=== PATIENT | female | born 1955 | race Two or more races ===

== ENCOUNTER 2021-03-12 10:52 | Emergency (ER) | payer MEDICARE, MEDICAID ==
[~2021-03-12] VITALS: Ht 170.2 cm; Wt 86.0 kg
[2021-03-12 12:45] VITALS: BP 168/95
[2021-03-12] MEDS ORDERED: ONDA4TAB6 PO (16:59)
[2021-03-12] MEDS ORDERED: ALBU8HFA PO (16:59)
[2021-03-12] MEDS ORDERED: BENZ-16 PO (16:59)
[2021-03-13] MEDS ORDERED: NO HOME MEDS PO (15:00)
== END 2021-03-12 17:39 | disposition home or self-care (01) ==
LOC: ER 10:53
DX: U07.1 COVID-19 (principal); R11.0 Nausea; R06.02 Shortness of breath; R09.89 Other specified symptoms and signs involving the circulatory and respiratory systems
CPT/HCPCS: 71045; 87635; 99285; C9803; 93005

== ENCOUNTER 2021-03-13 12:52 | Inpatient (IN) | payer MEDICARE, MEDICAID ==
[~2021-03-13] VITALS: Ht 165.1 cm; Wt 108.4 kg
[~2021-03-13 12:52] MED LIST: ALBU8HFA PO; BENZ-16 PO; ONDA4TAB6 PO; calcium chloride 100 MG/1 ML inj IV ONE; etomidate 2mg/ml inj. ONE; naloxone 0.4 mg/ml inj ONE; rocuronium 10mg/ml inj IV ONE; sodium bicarbonate (8.4%) 1 mEq/ml syringe ONE
--- NOTE | 2021-03-13 12:54 | NUR ---
ARRIVED IN ER PER EMS WITH NRB MASK AT 15 LPM. PATIENT IS UNRESPONSIVE, LETHARGIC, AND DIAPHORETIC.
[2021-03-13 13:07] LABS: ABG BASE EXCESS -24.3 mmol/L (-2.0-2.0); ABG HCO3 10.6 mmol/L (22.0-26.0); ABG OXYGEN SATURATION 97.5 % (94-97); ABG PCO2 (T) 63.7 mmHg (32.0-45.0); ABG PO2 (T) 146.8 mmHg (75.0-100.0); ALLEN'S TEST Modified; FCOHb 0.9 % (0.0-3.9); FLOW 15 L/min; FMetHb 0.3 % (0.0-1.5); FO2Hb 96.3 % (94-97); TOTAL HEMOGLOBIN 15.6 G/dl (12.0-16.0)
[2021-03-13 13:16] LABS: BASOPHILS % (AUTO) 0.2 % (0-1); EOSINOPHILS % (AUTO) 0 % (0-6); HEMATOCRIT 49.2 % (35.0-45.0); HEMOGLOBIN 15.4 g/dl (12.0-16.0); LYMPHOCYTES # (AUTO) 1.5 X10'3 (1.1-4.8); LYMPHOCYTES % (AUTO) 5.1 % (21-51); MEAN CORPUSCULAR HEMOGLOBIN 28.8 PG (27.0-31.0); MEAN CORPUSCULAR HGB CONC 31.3 g/dL (33.0-36.5); MEAN CORPUSCULAR VOLUME 92.1 FL (78-98); MEAN PLATELET VOLUME 8.8 FL (7.4-10.4); MONOCYTES # (AUTO) 5.4 X10'3 (0-0.9); MONOCYTES % (AUTO) 18.8 % (2-12); NEUTROPHILS # (AUTO) 21.9 X10'3 (1.8-7.7); NEUTROPHILS % (AUTO) 75.9 % (42-75); PLATELET COUNT 396 X10'3 (140-440); RED BLOOD COUNT 5.34 X10'6 (4.20-5.60); RED CELL DISTRIBUTION WIDTH 14.7 % (11.5-14.5)
--- NOTE | 2021-03-13 13:17 | NUR ---
INTUBATION COMPLETED. SUCTIONED OF LARGE AMOUNT CREAMY SECRETIONS PER RT. OG SALEM SUMP #18 FR INSERTED AND SECURED TO LIS WITH DARK OUTPUT. TEMP NELSON CATH INSERTED AND UA OBTAINED.
[2021-03-13 13:18] LABS: WHITE BLOOD COUNT 28.8 X10'3 (4.5-11.0)
[2021-03-13 13:24] LABS: CLARITY,URINE CLOUDY (Clear); COLOR,URINE YELLOW (Yellow); GLUCOSE, URINE >=1000 mg/dl (Neg); KETONES,URINE 40 mg/dl (Neg); LEUKOCYTE ESTERASE ,URINE NEGATIVE (Neg); NITRITES, URINE NEGATIVE (Neg); OCCULT BLOOD,URINE LARGE (Neg); PH,URINE 5.5 (4.8-8.0); PROTEIN,URINE 100 mg/dl (Neg)
[2021-03-13 13:28] LABS: UA COLLECTION TYPE FOLEY CATH
[2021-03-13 13:33] LABS: COARSE GRANULAR CAST >30 /LPF (NEGATIVE); SQUAMOUS EPITHELIAL CELL,UR FEW /LPF (FEW)
[2021-03-13 13:34] LABS: BACTERIA,URINE 2+ /HPF (Neg); RBC,URINE 0-2 /HPF (0-2); TRANSITIONAL EPI CELLS,URINE MODERATE /HPF; WBC,URINE 0-4 /HPF (0-4)
[2021-03-13 13:35] LABS: MUCUS STRANDS FEW /LPF (Neg)
[2021-03-13 13:41] LABS: ALANINE AMINOTRANSFERASE 24 U/L (12-78); ALBUMIN 3.1 G/DL (3.4-5.0); ALBUMIN/GLOBULIN RATIO 0.6 (1.1-1.5); ALKALINE PHOSPHATASE 154 IU/L (46-116); ANION GAP 29 (8-16); ASPARTATE AMINO TRANSFERASE 20 U/L (10-37); BILIRUBIN,TOTAL 0.7 MG/DL (0.1-1.0); BLOOD UREA NITROGEN 49 MG/DL (7-18); BUN/CREATININE RATIO 26.5 (6.6-38.0); CALCIUM 9.5 MG/DL (8.5-10.1); CHLORIDE 93 MMOL/L (99-107); CREATININE 1.85 MG/DL (0.40-0.90); PLATELET ESTIMATE NORMAL; POTASSIUM 3.5 MMOL/L (3.5-5.1); SODIUM 132 MMOL/L (135-145); TOTAL CELLS COUNTED 100; TOTAL PROTEIN 8.1 G/DL (6.4-8.2); eGFR 27 ML/MIN
[2021-03-13] MEDS ORDERED: iohexol 350MG/ML 100ml bottle IV ONE (13:56)
--- NOTE | 2021-03-13 14:00 | NUR ---
PTS DAUGHTER [phone]
[2021-03-13 14:04] LABS: TOTAL CARBON DIOXIDE 10.3 MMOL/L (24-32)
[2021-03-13 14:05] LABS: GLUCOSE 629 MG/DL (70-104)
[2021-03-13] MEDS ORDERED: sodium bicarbonate (8.4%) inj. 50 MEQ in dextrose 5% water 500ml 250 ML IV PRN (14:15)
[2021-03-13] MEDS ORDERED: sodium bicarbonate (8.4%) inj. 100 MEQ in dextrose 5% water 500ml 500 ML IV PRN (14:15)
[2021-03-13] MEDS ORDERED: potassium Cl 40MEQ/1/2NS 520ml 520 ML IV PRN ×2 (14:15)
[2021-03-13] MEDS ORDERED: insulin regular, human U-100 3ml vial - multi-dose IV PRN (14:15)
[2021-03-13] MEDS ORDERED: potassium Cl 20 mEq SR tablet PO PRN ×4 (14:15→15:05)
[2021-03-13] MEDS ORDERED: Neutra Phos packet PO PRN (14:15)
[2021-03-13] MEDS ORDERED: sodium phosphate inj. 15 MMOL in dextrose 5%-water 250 ML IV PRN (14:15)
[2021-03-13 14:40] LABS: ABG BASE EXCESS -18.1 mmol/L (-2.0-2.0); ABG HCO3 12.3 mmol/L (22.0-26.0); ABG OXYGEN SATURATION 97.2 % (94-97); ABG PCO2 (T) 42.2 mmHg (32.0-45.0); ABG PO2 (T) 100.3 mmHg (75.0-100.0); ALLEN'S TEST POSITIVE; FCOHb 0.9 % (0.0-3.9); FMetHb 0.2 % (0.0-1.5); FO2Hb 96.1 % (94-97); PEEP 5 cm H2O; RESPIRATORY RATE 20 b/min; TIDAL VOLUME 400 mL; TOTAL HEMOGLOBIN 14.8 G/dl (12.0-16.0)
[2021-03-13 15:00] LABS: ALBUMIN 2.7 G/DL (3.4-5.0); ANION GAP 24 (8-16); BLOOD UREA NITROGEN 47 MG/DL (7-18); BUN/CREATININE RATIO 27.5 (6.6-38.0); CALCIUM 9.9 MG/DL (8.5-10.1); CHLORIDE 98 MMOL/L (99-107); CREATININE 1.71 MG/DL (0.40-0.90); SODIUM 136 MMOL/L (135-145); eGFR 30 ML/MIN
[2021-03-13] MEDS ORDERED: NO HOME MEDS PO (15:00)
[2021-03-13 15:05] LABS: TOTAL CARBON DIOXIDE 13.6 MMOL/L (24-32)
[2021-03-13] MEDS ORDERED: magnesium hydroxide 30ml (MOM) UD suspension PO PRN (15:05)
[2021-03-13] MEDS ORDERED: magnesium 4gm in 100ml NS 100 ML IV PRN (15:05)
[2021-03-13] MEDS ORDERED: ondansetron/PF 4mg/2ml inj IV PRN (15:05)
[2021-03-13] MEDS ORDERED: acetaminophen 325mg tablet PO PRN (15:05)
[2021-03-13] MEDS ORDERED: LIDOcaine 2% 10ml TOPICAL JELLY (Urojet) TP ONE (15:05)
[2021-03-13] MEDS ORDERED: ipratropium/albuterol 3ml nebule NEB PRN (15:05)
[2021-03-13] MEDS ORDERED: magnesium 2GM in 50ml NS 50 ML IV PRN (15:05)
[2021-03-13] MEDS ORDERED: magnesium Cl slow-release 64mg tablet PO PRN (15:05)
[2021-03-13 15:07] LABS: PHOSPHORUS 4.5 MG/DL (2.3-4.5); POTASSIUM 3.3 MMOL/L (3.5-5.1)
[2021-03-13 15:08] LABS: GLUCOSE 571 MG/DL (70-104)
--- NOTE | 2021-03-13 15:40 | NUR ---
TC FROM [facility]. CONDITION REPORT GIVEN AND ALL QUESTIONS ANSWERED.
[2021-03-13 15:53] LABS: PLATELET COUNT 396 X10'3 (140-440)
[2021-03-13] MEDS ORDERED: midazolam 100mg in NS 100ml 100 ML IV ONE (16:00)
[2021-03-13] MEDS ORDERED: VANCOMYCIN 750MG IV in NS 250 ML IV SCH (16:00)
[2021-03-13 16:07] LABS: D-DIMER 4.84 MG/L FEU (0-0.50); PARTIAL THROMBOPLASTIN TIME 35 SECONDS (22-32)
[2021-03-13] MEDS: Insulin Reg/NS 100units/100mL 100 ML IV SCH (16:34)
[2021-03-13] MEDS: normal saline 1000ml 1,000 ML IV SCH ×7 (16:35→23:52)
[2021-03-13] MEDS: cefTAZidime inj 2 GM in normal saline 100ml IV soln 100 ML IV SCH (17:11)
[2021-03-13] MEDS ORDERED: REMDESIVIR INJ 200 MG in normal saline 100ml IV soln 60 ML IV ONE (17:45)
[2021-03-13] MEDS: fentaNYL/PF 50MCG/1 ML 2ML syringe IV PRN (18:05)
--- NOTE | 2021-03-13 18:13 | NUR ---
PHONE NUMBER IS: [phone]
[2021-03-13] MEDS: K, MAG and/or Phos replacement - Verify level? MC SCH (19:07)
[2021-03-13] MEDS: docusate sod 100mg capsule PO SCH (19:10)
[2021-03-13] MEDS: K and/or MAG REPLACEMENT MC SCH (19:10)
--- NOTE | 2021-03-13 19:37 | NUR ---
RT AT BEDSIDE DRAWING ABG. PTS DAUGHTER AT BEDSIDE PARAMJIT (LOCAL) CELL # [phone]. VSS. REMAINS ON VENT AT 50% FIO2. rATE OF 20 WITH PEEP 5.
[2021-03-13] MEDS: enoxaparin 60mg/0.6ml syringe SUBCUT SCH (19:42)
--- NOTE | 2021-03-13 19:42 | NUR ---
PTS , [facility], . THEY ARE STAYING IN [place] RIGHT NOW BUT THEY LIVE IN [place] AND AR CURRENTLY EVACUATED D/T FIRES.
[2021-03-13 19:49] LABS: ABG BASE EXCESS -15.9 mmol/L (-2.0-2.0); ABG HCO3 11.5 mmol/L (22.0-26.0); ABG OXYGEN SATURATION 90.1 % (94-97); ABG PCO2 (T) 32.4 mmHg (32.0-45.0); ABG PO2 (T) 58.1 mmHg (75.0-100.0); ALLEN'S TEST Modified; FCOHb 0.8 % (0.0-3.9); FMetHb 0.1 % (0.0-1.5); FO2Hb 89.3 % (94-97); PATIENT TEMPERATURE 36.8; PEEP 5 cm H2O; RESPIRATORY RATE 20 b/min; TIDAL VOLUME 450 mL; TOTAL HEMOGLOBIN 14.4 G/dl (12.0-16.0)
[2021-03-13] MEDS ORDERED: piperacillin/tazo 4.5gm/100ml 100 ML IV ONE (20:00)
[2021-03-13] MEDS ORDERED: dexamethasone 4mg/ml inj IM SCH (20:00)
[2021-03-13 20:14] LABS: BASOPHILS % (AUTO) 0.3 % (0-1); EOSINOPHILS % (AUTO) 0.1 % (0-6); HEMATOCRIT 47.1 % (35.0-45.0); HEMOGLOBIN 14.8 g/dl (12.0-16.0); LYMPHOCYTES # (AUTO) 0.8 X10'3 (1.1-4.8); LYMPHOCYTES % (AUTO) 5.6 % (21-51); MEAN CORPUSCULAR HEMOGLOBIN 27.8 PG (27.0-31.0); MEAN CORPUSCULAR HGB CONC 31.5 g/dL (33.0-36.5); MEAN CORPUSCULAR VOLUME 88.4 FL (78-98); MEAN PLATELET VOLUME 8.3 FL (7.4-10.4); MONOCYTES # (AUTO) 1.6 X10'3 (0-0.9); MONOCYTES % (AUTO) 11.2 % (2-12); NEUTROPHILS # (AUTO) 11.5 X10'3 (1.8-7.7); NEUTROPHILS % (AUTO) 82.8 % (42-75); PLATELET COUNT 235 X10'3 (140-440); RED BLOOD COUNT 5.33 X10'6 (4.20-5.60); RED CELL DISTRIBUTION WIDTH 14.4 % (11.5-14.5); WHITE BLOOD COUNT 13.9 X10'3 (4.5-11.0)
[2021-03-13 20:30] LABS: ALANINE AMINOTRANSFERASE 23 U/L (12-78); ALBUMIN/GLOBULIN RATIO 0.6 (1.1-1.5); ALKALINE PHOSPHATASE 136 IU/L (46-116); ANION GAP 25 (8-16); ASPARTATE AMINO TRANSFERASE 24 U/L (10-37); BILIRUBIN,TOTAL 1.1 MG/DL (0.1-1.0); BLOOD UREA NITROGEN 37 MG/DL (7-18); CALCIUM 9.8 MG/DL (8.5-10.1); CHLORIDE 104 MMOL/L (99-107); CREATININE 1.54 MG/DL (0.40-0.90); GLUCOSE 347 MG/DL (70-104); MAGNESIUM 2.3 MG/DL (1.5-2.4); SODIUM 144 MMOL/L (135-145); TOTAL CARBON DIOXIDE 15.3 MMOL/L (24-32); TOTAL PROTEIN 7.9 G/DL (6.4-8.2); eGFR 34 ML/MIN
[2021-03-13 20:36] LABS: POTASSIUM 2.4 MMOL/L (3.5-5.1)
--- NOTE | 2021-03-13 20:37 | NUR ---
K 2.4, INSULIN GTT STOPPED PER PROTOCOL AND PAGE OUT TO NOC SEMAPHORE OPERATOR. PTS DAUGHTER REMAINIS AT BEDSIDE. PT HAS ROOM ASSIGNMENT, 2008.
--- NOTE | 2021-03-13 20:45 | NUR ---
DR. JENNINGS CALLED TO UPDATE K 2.4. VERBAL RECEIVED TO CONTINUE OUR DKA PROTOCOL AND STOP INSULIN GTT UNTIL K OVER 3.5. CONTINUE IV FLUIDS. ORDER K REPLACEMENT. ALSO ASKED ABOUT NEED FOR FENTANYL GTT AND HE REPORTS OK TO KEEP IT PRN PUSH CURRENTLY ORDERED. REPORTS JUST GIVEN TO RN OTOLARYNGOLOGY BY LILLY CLOUD.
[2021-03-13 21:19] LABS: BANDS% (MANUAL) 16 % (0-10); LYMPHOCYTES % (MANUAL) 5 % (21-51); METAMYLEOCYTES% (MANUAL) 5 % (0-0); MONOCYTES % (MANUAL) 13 % (2-12); NEUTROPHILS % (MANUAL) 61 % (42-75); TOTAL CELLS COUNTED 100
[2021-03-13 21:20] LABS: PLATELET ESTIMATE NORMAL
[2021-03-13 21:30] VITALS: BP 136/57
[2021-03-13] MEDS: potassium Cl 20mEq/100mL bag 100 ML IV PRN ×2 (21:44→23:23)
[2021-03-13] MEDS: sodium phosphate inj. 30 MMOL in dextrose 5%-water 250 ML IV PRN (21:50)
[2021-03-13 22:00] VITALS: BP 117/45
[2021-03-13 23:00] VITALS: BP 121/52
[2021-03-14] VITALS (24 sets, daily range): BP systolic 68–130; BP diastolic 36–62
[2021-03-14] MEDS ORDERED: magnesium 4gm in 100ml NS 100 ML IV ONE (00:40)
[2021-03-14] MEDS: dexmedetomidin/NS 400mcg/100ml 100 ML IV PRN ×4 (00:46→23:37)
[2021-03-14] MEDS: potassium Cl 20mEq/100mL bag 100 ML IV PRN ×5 (01:36→15:00)
[2021-03-14] MEDS: normal saline 1000ml 1,000 ML IV SCH ×8 (02:15→22:15)
[2021-03-14 04:37] LABS: BASOPHILS % (AUTO) 0 % (0-1); EOSINOPHILS % (AUTO) 0 % (0-6); HEMATOCRIT 40.7 % (35.0-45.0); HEMOGLOBIN 13.2 g/dl (12.0-16.0); LYMPHOCYTES # (AUTO) 0.4 X10'3 (1.1-4.8); LYMPHOCYTES % (AUTO) 2.7 % (21-51); MEAN CORPUSCULAR HEMOGLOBIN 28.6 PG (27.0-31.0); MEAN CORPUSCULAR HGB CONC 32.5 g/dL (33.0-36.5); MEAN PLATELET VOLUME 8.3 FL (7.4-10.4); MONOCYTES % (AUTO) 14.6 % (2-12); NEUTROPHILS # (AUTO) 11.1 X10'3 (1.8-7.7); NEUTROPHILS % (AUTO) 82.7 % (42-75); PLATELET COUNT 222 X10'3 (140-440); RED BLOOD COUNT 4.62 X10'6 (4.20-5.60); RED CELL DISTRIBUTION WIDTH 14.1 % (11.5-14.5); WHITE BLOOD COUNT 13.4 X10'3 (4.5-11.0)
[2021-03-14 04:40] LABS: ABG BASE EXCESS -14.4 mmol/L (-2.0-2.0); ABG HCO3 11.9 mmol/L (22.0-26.0); ABG OXYGEN SATURATION 97.4 % (94-97); ALLEN'S TEST Modified; FCOHb 0.3 % (0.0-3.9); FMetHb 0.3 % (0.0-1.5); FO2Hb 96.8 % (94-97); PEEP 5 cm H2O; RESPIRATORY RATE 20 b/min; TIDAL VOLUME 450 mL; TOTAL HEMOGLOBIN 14.1 G/dl (12.0-16.0)
[2021-03-14 04:46] LABS: ALBUMIN 2.2 G/DL (3.4-5.0); ANION GAP 19 (8-16); BLOOD UREA NITROGEN 31 MG/DL (7-18); CALCIUM 8.9 MG/DL (8.5-10.1); CHLORIDE 112 MMOL/L (99-107); CREATININE 1.35 MG/DL (0.40-0.90); GLUCOSE 297 MG/DL (70-104); MAGNESIUM 2.8 MG/DL (1.5-2.4); POTASSIUM 3.7 MMOL/L (3.5-5.1); SODIUM 146 MMOL/L (135-145); eGFR 39 ML/MIN
[2021-03-14 04:47] LABS: PARTIAL THROMBOPLASTIN TIME 30 SECONDS (22-32)
[2021-03-14 05:23] LABS: BANDS% (MANUAL) 24 % (0-10); LYMPHOCYTES % (MANUAL) 4 % (21-51); MONOCYTES % (MANUAL) 7 % (2-12); NEUTROPHILS % (MANUAL) 62 % (42-75); TOTAL CELLS COUNTED 100
[2021-03-14 05:24] LABS: METAMYLEOCYTES% (MANUAL) 3 % (0-0); PLATELET ESTIMATE NORMAL
[2021-03-14] MEDS: potassium CL 20mEq in D5-1/2NS 1,000 ML IV PRN ×3 (05:36→22:24)
--- NOTE | 2021-03-14 06:49 | NUR ---
Problems reprioritized. Patient report given, questions answered & plan of care reviewed with Emerald CARR.
[2021-03-14] MEDS: pantoprazole 40 MG vial IV SCH (07:54)
[2021-03-14] MEDS: enoxaparin 60mg/0.6ml syringe SUBCUT SCH ×2 (07:55→21:12)
[2021-03-14] MEDS: docusate sod 100mg capsule PO SCH (08:00)
[2021-03-14] MEDS: K, MAG and/or Phos replacement - Verify level? MC SCH (08:00)
[2021-03-14] MEDS ORDERED: dexamethasone 4mg/ml inj IM SCH (08:00)
[2021-03-14] MEDS: K and/or MAG REPLACEMENT MC SCH ×2 (08:00→20:00)
[2021-03-14] MEDS: REMDESIVIR INJ 100 MG in normal saline 100ml IV soln 80 ML IV SCH (08:34)
[2021-03-14 09:32] LABS: C-REACTIVE PROTEIN 27.96 MG/DL (0.0-0.5)
[2021-03-14] MEDS: cefTAZidime inj 2 GM in normal saline 100ml IV soln 100 ML IV SCH ×2 (10:08→21:05)
[2021-03-14] MEDS: Insulin Reg/NS 100units/100mL 100 ML IV SCH (10:15)
[2021-03-14] MEDS: dexamethasone 4mg/ml inj IV SCH ×2 (10:53→21:11)
--- NOTE | 2021-03-14 11:20 | NUR ---
Initial: Pt admit for acute respiratory failure, COVID PNA, DKA, and mild acute renal failure. Pt intubated at this time, documented with an OG tube in place though no TF consult at this time. TF recommendations below for if expected prolonged intubation and to receive nutrition support. Per EMR pt with T2DM however per H&P and ED report pt with prediabetes, noted pt with no home meds per ED report, current A1c is 9.8%. Pt will need official DM diagnosis by physician prior to RD providing education if this is a new diagnosis. No documented LBM, pt with routine Colace available however documented to be held d/t not needed. Will continue to follow closely. Recommendations: 1) IF TF, continuous Vital High Protein with goal rate of 60 mL/hr. Begin at 20 mL/hr and advance by 20 mL Q8H as tolerated to goal rate. To provide 1440 mL total volume/day, 1440 kcal, 126 g protein, and 1204 mL water 2) IF TF, monitor serum Na and make water flush recommendations as appropriate. Low serum Na on admit, now elevated 3) IF TF, prealbumin q Saturday/, daily scaled weights 4) Routine bowel care 5) DM education once stable following extubation, A1c 9.8%. Possibly new diagnosis Addendum: 03/14/21 at [address] Amended: Links added.
[2021-03-14] MEDS: fentaNYL/PF 50MCG/1 ML 2ML syringe IV PRN (13:29)
--- NOTE | 2021-03-14 13:37 | NUR ---
Dr Howell notified of +BC no new orders
[2021-03-14 13:39] LABS: ALBUMIN 1.7 G/DL (3.4-5.0); ANION GAP 12 (8-16); BLOOD UREA NITROGEN 28 MG/DL (7-18); BUN/CREATININE RATIO 21.7 (6.6-38.0); CALCIUM 7.8 MG/DL (8.5-10.1); CHLORIDE 117 MMOL/L (99-107); CREATININE 1.29 MG/DL (0.40-0.90); GLUCOSE 164 MG/DL (70-104); POTASSIUM 3.4 MMOL/L (3.5-5.1); SODIUM 148 MMOL/L (135-145); TOTAL CARBON DIOXIDE 19.4 MMOL/L (24-32); eGFR 41 ML/MIN
[2021-03-14] MEDS ORDERED: NORepinephrine 8mg/ 250ml NS 250 ML IV ONE (13:48)
[2021-03-14] MEDS: vancomycin/NS 1 GM ADD-VANTAGE 250 ML IV SCH (15:47)
[2021-03-14] MEDS: acetaminophen 325mg tablet PO PRN ×2 (15:57→21:48)
[2021-03-14] MEDS ORDERED: docusate sodium 100mg/10ml UD cup OGT ONE (20:51)
[2021-03-14] MEDS: enoxaparin 30mg/0.3ml syringe SUBCUT SCH (21:13)
[2021-03-14 22:39] LABS: ALBUMIN 1.9 G/DL (3.4-5.0); ANION GAP 8 (8-16); BLOOD UREA NITROGEN 30 MG/DL (7-18); BUN/CREATININE RATIO 22.1 (6.6-38.0); CALCIUM 8.8 MG/DL (8.5-10.1); CHLORIDE 116 MMOL/L (99-107); CREATININE 1.36 MG/DL (0.40-0.90); GLUCOSE 139 MG/DL (70-104); MAGNESIUM 2.4 MG/DL (1.5-2.4); POTASSIUM 4.4 MMOL/L (3.5-5.1); SODIUM 144 MMOL/L (135-145); TOTAL CARBON DIOXIDE 19.7 MMOL/L (24-32); eGFR 39 ML/MIN
[2021-03-14] MEDS ORDERED: dextrose 50%-water 50ml dispensing syringe IV PRN ×2 (23:50)
[2021-03-14] MEDS ORDERED: dextrose ORAL solution 15 GM/59 ML bottle PO PRN ×2 (23:50)
[2021-03-14] MEDS ORDERED: glucagon, human recombinant 1mg kit SUBCUT PRN (23:50)
[2021-03-15] VITALS (24 sets, daily range): BP systolic 95–152; BP diastolic 53–90
[2021-03-15] MEDS: sodium phosphate inj. 30 MMOL in dextrose 5%-water 250 ML IV PRN (00:04)
[2021-03-15] MEDS: normal saline 1000ml 1,000 ML IV SCH ×4 (00:25→15:50)
[2021-03-15] MEDS: insulin glargine (Lantus) pen - multi-dose SQ SCH ×2 (03:41→21:17)
[2021-03-15] MEDS: insulin regular, human U-100 3ml vial - multi-dose SQ SCH ×4 (03:44→21:15)
[2021-03-15 04:42] LABS: BASOPHILS % (AUTO) 0.2 % (0-1); EOSINOPHILS % (AUTO) 0 % (0-6); HEMATOCRIT 38.1 % (35.0-45.0); HEMOGLOBIN 12.3 g/dl (12.0-16.0); LYMPHOCYTES # (AUTO) 0.6 X10'3 (1.1-4.8); LYMPHOCYTES % (AUTO) 4.3 % (21-51); MEAN CORPUSCULAR HEMOGLOBIN 28.7 PG (27.0-31.0); MEAN CORPUSCULAR HGB CONC 32.2 g/dL (33.0-36.5); MEAN CORPUSCULAR VOLUME 89.2 FL (78-98); MEAN PLATELET VOLUME 8.6 FL (7.4-10.4); MONOCYTES # (AUTO) 0.9 X10'3 (0-0.9); MONOCYTES % (AUTO) 5.7 % (2-12); NEUTROPHILS # (AUTO) 13.6 X10'3 (1.8-7.7); NEUTROPHILS % (AUTO) 89.8 % (42-75); PLATELET COUNT 226 X10'3 (140-440); RED BLOOD COUNT 4.27 X10'6 (4.20-5.60); RED CELL DISTRIBUTION WIDTH 14.6 % (11.5-14.5); WHITE BLOOD COUNT 15.2 X10'3 (4.5-11.0)
[2021-03-15 04:53] LABS: D-DIMER 2.47 MG/L FEU (0-0.50); PARTIAL THROMBOPLASTIN TIME 37 SECONDS (22-32)
[2021-03-15 04:54] LABS: ABG BASE EXCESS -12.4 mmol/L (-2.0-2.0); ABG HCO3 12.6 mmol/L (22.0-26.0); ABG OXYGEN SATURATION 89.5 % (94-97); ABG PCO2 (T) 28.8 mmHg (32.0-45.0); ABG PO2 (T) 65.2 mmHg (75.0-100.0); ALLEN'S TEST Modified; FCOHb 0.4 % (0.0-3.9); FMetHb 0.2 % (0.0-1.5); PATIENT TEMPERATURE 38.2; PEEP 5 cm H2O; RESPIRATORY RATE 20 b/min; TIDAL VOLUME 450 mL; TOTAL HEMOGLOBIN 13.4 G/dl (12.0-16.0)
[2021-03-15] MEDS: potassium CL 20mEq in D5-1/2NS 1,000 ML IV PRN (04:54)
[2021-03-15] MEDS: dexmedetomidin/NS 400mcg/100ml 100 ML IV PRN ×2 (05:42→20:29)
[2021-03-15 05:50] LABS: ALANINE AMINOTRANSFERASE 27 U/L (12-78); ALBUMIN/GLOBULIN RATIO 0.5 (1.1-1.5); ALKALINE PHOSPHATASE 160 IU/L (46-116); ANION GAP 13 (8-16); ASPARTATE AMINO TRANSFERASE 39 U/L (10-37); BILIRUBIN,TOTAL 0.6 MG/DL (0.1-1.0); BLOOD UREA NITROGEN 38 MG/DL (7-18); BUN/CREATININE RATIO 27.3 (6.6-38.0); CHLORIDE 111 MMOL/L (99-107); CREATININE 1.39 MG/DL (0.40-0.90); GLUCOSE 421 MG/DL (70-104); MAGNESIUM 2.5 MG/DL (1.5-2.4); PHOSPHORUS 3.3 MG/DL (2.3-4.5); POTASSIUM 5.1 MMOL/L (3.5-5.1); SODIUM 143 MMOL/L (135-145); TOTAL CARBON DIOXIDE 19.2 MMOL/L (24-32); eGFR 38 ML/MIN
--- NOTE | 2021-03-15 06:30 | NUR ---
RECEIVED REPORT FROM LILLY COPELAND
--- NOTE | 2021-03-15 06:56 | NUR ---
Problems reprioritized. Patient report given, questions answered & plan of care reviewed with STEPHANIE CARR.
[2021-03-15] MEDS: dexamethasone 4mg/ml inj IV SCH ×2 (08:00→20:32)
[2021-03-15] MEDS: K and/or MAG REPLACEMENT MC SCH ×2 (08:00→20:00)
[2021-03-15] MEDS: K, MAG and/or Phos replacement - Verify level? MC SCH (08:00)
[2021-03-15] MEDS: FENTANYL-0.9 % NACL/PF 100 ML IV PRN (08:44)
[2021-03-15] MEDS: REMDESIVIR INJ 100 MG in normal saline 100ml IV soln 80 ML IV SCH (08:45)
[2021-03-15] MEDS: midazolam 100mg in NS 100ml 100 ML IV PRN (08:45)
[2021-03-15] MEDS: docusate sodium 100mg/10ml UD cup OGT SCH ×2 (08:45→20:31)
[2021-03-15] MEDS: cefTAZidime inj 2 GM in normal saline 100ml IV soln 100 ML IV SCH ×2 (08:45→20:28)
[2021-03-15] MEDS: enoxaparin 30mg/0.3ml syringe SUBCUT SCH ×2 (08:46→20:31)
[2021-03-15] MEDS: enoxaparin 60mg/0.6ml syringe SUBCUT SCH ×2 (08:46→20:31)
[2021-03-15] MEDS: pantoprazole 40 MG vial IV SCH (08:47)
--- NOTE | 2021-03-15 12:15 | NUR ---
DR. JEFF INSERTED CHEST TUBE ON RIGHT SIDE.
--- NOTE | 2021-03-15 13:24 | NUR ---
TF consult: Pt remains intubated, see TF recommendations below. Per CM notes patient's SO reports pt was told that she has pre-diabetes a couple of years ago and that pt has been watching what she eats and trying to stay active. Current A1c is 9.8%, pt will need DM dx by physician prior to RD being able to provide DM education. Will continue to follow. Recommendations: 1) Continuous Vital High Protein with goal rate of 60 mL/hr. To provide 1440 mL total volume/day, 1440 kcal, 126 g protein, and 1204 mL water 2) Additional 200 mL water flush Q4H; monitor serum Na 3) Prealbumin q Saturday/, daily scaled weights 4) Routine bowel care 5) DM education once stable following extubation, A1c 9.8%. Will need diagnosis by physician prior to RD education Addendum: 03/15/21 at [address] Amended: Links added.
[2021-03-15] MEDS ORDERED: magnesium hydroxide 30ml (MOM) UD suspension OGT PRN (15:36)
[2021-03-15] MEDS ORDERED: POTASSIUM BICARB 20meq eff tab 20 MEQ TABLET.EFF PO PRN ×3 (15:40)
[2021-03-15] MEDS ORDERED: POTASSIUM BICARB 20meq eff tab 20 MEQ TABLET.EFF OGT PRN ×2 (15:40)
[2021-03-15] MEDS ORDERED: dextrose ORAL solution 15 GM/59 ML bottle OGT PRN ×2 (15:50)
[2021-03-15] MEDS: vancomycin/NS 1 GM ADD-VANTAGE 250 ML IV SCH (15:50)
[2021-03-15 16:38] LABS: ALANINE AMINOTRANSFERASE 25 U/L (12-78); ALBUMIN 1.8 G/DL (3.4-5.0); ALBUMIN/GLOBULIN RATIO 0.5 (1.1-1.5); ALKALINE PHOSPHATASE 174 IU/L (46-116); ANION GAP 12 (8-16); ASPARTATE AMINO TRANSFERASE 24 U/L (10-37); BILIRUBIN,TOTAL 0.4 MG/DL (0.1-1.0); BLOOD UREA NITROGEN 35 MG/DL (7-18); BUN/CREATININE RATIO 29.9 (6.6-38.0); CALCIUM 8.7 MG/DL (8.5-10.1); CHLORIDE 117 MMOL/L (99-107); CREATININE 1.17 MG/DL (0.40-0.90); GLUCOSE 342 MG/DL (70-104); POTASSIUM 4.5 MMOL/L (3.5-5.1); SODIUM 148 MMOL/L (135-145); TOTAL CARBON DIOXIDE 18.8 MMOL/L (24-32); TOTAL PROTEIN 5.4 G/DL (6.4-8.2); eGFR 46 ML/MIN
--- NOTE | 2021-03-15 18:22 | NUR ---
REPORT GIVEN TO LLILY COPELAND
--- NOTE | 2021-03-15 18:30 | NUR ---
Patient in room CICU 2008. I have received report from STEPHANIE CARR and had the opportunity to ask questions and assume patient care.
--- NOTE | 2021-03-15 19:40 | NUR ---
INITIAL ASSESSMENT DONE. CHEST TUBE TO SUCTION. SERO-SANGUINEOUS OUTPUT. ALL MEDS INFUSING THROUGH CVL. PT INTUBATED AND TOLERATING WELL. FENTANYL BOLOS GIVEN FOR PAIN MANAGEMENT.
[2021-03-15] MEDS: lactobacillus rhamnosus 10,000 MMU CELLS/CAPSULE PO SCH (21:13)
[2021-03-16] VITALS (24 sets, daily range): BP systolic 97–153; BP diastolic 51–92
[2021-03-16] MEDS: dexmedetomidin/NS 400mcg/100ml 100 ML IV PRN ×2 (02:16→17:21)
[2021-03-16] MEDS: FENTANYL-0.9 % NACL/PF 100 ML IV PRN ×2 (02:17→20:24)
[2021-03-16 02:52] LABS: BASOPHILS # (AUTO) 0.3 X10'3 (0-0.2); BASOPHILS % (AUTO) 1.5 % (0-1); EOSINOPHILS % (AUTO) 0 % (0-6); HEMATOCRIT 38.1 % (35.0-45.0); HEMOGLOBIN 12.5 g/dl (12.0-16.0); LYMPHOCYTES # (AUTO) 0.7 X10'3 (1.1-4.8); MEAN CORPUSCULAR HEMOGLOBIN 28.8 PG (27.0-31.0); MEAN CORPUSCULAR HGB CONC 32.9 g/dL (33.0-36.5); MEAN CORPUSCULAR VOLUME 87.6 FL (78-98); MEAN PLATELET VOLUME 9.2 FL (7.4-10.4); MONOCYTES # (AUTO) 0.7 X10'3 (0-0.9); NEUTROPHILS # (AUTO) 16.4 X10'3 (1.8-7.7); NEUTROPHILS % (AUTO) 90.5 % (42-75); PLATELET COUNT 233 X10'3 (140-440); RED BLOOD COUNT 4.36 X10'6 (4.20-5.60); RED CELL DISTRIBUTION WIDTH 15.2 % (11.5-14.5); WHITE BLOOD COUNT 18.1 X10'3 (4.5-11.0)
[2021-03-16 03:08] LABS: D-DIMER 2.15 MG/L FEU (0-0.50); PARTIAL THROMBOPLASTIN TIME 35 SECONDS (22-32)
[2021-03-16] MEDS: insulin regular, human U-100 3ml vial - multi-dose SQ SCH ×3 (03:21→20:30)
[2021-03-16 03:54] LABS: ALBUMIN 1.8 G/DL (3.4-5.0); ANION GAP 11 (8-16); BLOOD UREA NITROGEN 35 MG/DL (7-18); BUN/CREATININE RATIO 37.6 (6.6-38.0); CALCIUM 9.1 MG/DL (8.5-10.1); CHLORIDE 119 MMOL/L (99-107); CREATININE 0.93 MG/DL (0.40-0.90); GLUCOSE 234 MG/DL (70-104); MAGNESIUM 2.7 MG/DL (1.5-2.4); POTASSIUM 4.2 MMOL/L (3.5-5.1); PREALBUMIN 6.2 MG/DL (19-36); SODIUM 150 MMOL/L (135-145); TOTAL CARBON DIOXIDE 19.9 MMOL/L (24-32); eGFR 61 ML/MIN
[2021-03-16 04:14] LABS: BANDS% (MANUAL) 6 % (0-10); LYMPHOCYTES % (MANUAL) 4 % (21-51); MONOCYTES % (MANUAL) 2 % (2-12); NEUTROPHILS % (MANUAL) 88 % (42-75); TOTAL CELLS COUNTED 100
[2021-03-16 04:15] LABS: PLATELET ESTIMATE NORMAL
[2021-03-16 04:32] LABS: ABG BASE EXCESS -5.5 mmol/L (-2.0-2.0); ABG HCO3 17.4 mmol/L (22.0-26.0); ABG OXYGEN SATURATION 96.8 % (94-97); ABG PO2 (T) 93.8 mmHg (75.0-100.0); ALLEN'S TEST Modified; FCOHb 0.5 % (0.0-3.9); FMetHb 0.3 % (0.0-1.5); PATIENT TEMPERATURE 37.9; PEEP 5 cm H2O; RESPIRATORY RATE 20 b/min; TIDAL VOLUME 450 mL
[2021-03-16 04:37] LABS: C-REACTIVE PROTEIN 34.48 MG/DL (0.0-0.5)
--- NOTE | 2021-03-16 06:18 | NUR ---
Problems reprioritized. Patient report given, questions answered & plan of care reviewed with CHLOE CARR.
[2021-03-16] MEDS: normal saline 1000ml 1,000 ML IV SCH ×2 (06:44→15:45)
[2021-03-16] MEDS: K, MAG and/or Phos replacement - Verify level? MC SCH (08:00)
[2021-03-16] MEDS: K and/or MAG REPLACEMENT MC SCH ×2 (08:00→20:00)
[2021-03-16] MEDS: cefTAZidime inj 2 GM in normal saline 100ml IV soln 100 ML IV SCH ×3 (08:29→23:49)
[2021-03-16] MEDS: dexamethasone 4mg/ml inj IV SCH ×2 (08:42→20:15)
[2021-03-16] MEDS: enoxaparin 60mg/0.6ml syringe SUBCUT SCH ×2 (08:47→20:12)
[2021-03-16] MEDS: enoxaparin 30mg/0.3ml syringe SUBCUT SCH ×2 (08:47→20:12)
[2021-03-16] MEDS: lactobacillus rhamnosus 10,000 MMU CELLS/CAPSULE PO SCH ×2 (08:48→20:25)
[2021-03-16] MEDS: docusate sodium 100mg/10ml UD cup OGT SCH ×2 (08:48→20:24)
[2021-03-16] MEDS: REMDESIVIR INJ 100 MG in normal saline 100ml IV soln 80 ML IV SCH (08:48)
[2021-03-16] MEDS: pantoprazole 40 MG vial IV SCH (08:48)
[2021-03-16] MEDS ORDERED: VANCOMYCIN LEVEL IV ONE (15:30)
[2021-03-16] MEDS: acetaminophen 325mg tablet OGT PRN (20:20)
[2021-03-16] MEDS: insulin glargine (Lantus) pen - multi-dose SQ SCH (20:50)
[2021-03-17] VITALS (24 sets, daily range): BP systolic 109–201; BP diastolic 57–78
[2021-03-17] MEDS: insulin regular, human U-100 3ml vial - multi-dose SQ SCH ×4 (01:55→20:24)
[2021-03-17 02:48] LABS: BASOPHILS # (AUTO) 0.1 X10'3 (0-0.2); BASOPHILS % (AUTO) 0.5 % (0-1); EOSINOPHILS % (AUTO) 0 % (0-6); HEMATOCRIT 37.1 % (35.0-45.0); HEMOGLOBIN 12.4 g/dl (12.0-16.0); LYMPHOCYTES # (AUTO) 0.6 X10'3 (1.1-4.8); MEAN CORPUSCULAR HEMOGLOBIN 28.8 PG (27.0-31.0); MEAN CORPUSCULAR HGB CONC 33.4 g/dL (33.0-36.5); MEAN CORPUSCULAR VOLUME 86.5 FL (78-98); MEAN PLATELET VOLUME 9.3 FL (7.4-10.4); MONOCYTES # (AUTO) 0.8 X10'3 (0-0.9); MONOCYTES % (AUTO) 5.3 % (2-12); NEUTROPHILS # (AUTO) 13.8 X10'3 (1.8-7.7); NEUTROPHILS % (AUTO) 90.2 % (42-75); PLATELET COUNT 221 X10'3 (140-440); RED BLOOD COUNT 4.29 X10'6 (4.20-5.60); RED CELL DISTRIBUTION WIDTH 15.4 % (11.5-14.5); WHITE BLOOD COUNT 15.3 X10'3 (4.5-11.0)
[2021-03-17 03:11] LABS: D-DIMER 1.32 MG/L FEU (0-0.50); PARTIAL THROMBOPLASTIN TIME 34 SECONDS (22-32)
[2021-03-17 03:21] LABS: ALBUMIN 1.6 G/DL (3.4-5.0); ANION GAP 7 (8-16); BLOOD UREA NITROGEN 36 MG/DL (7-18); BUN/CREATININE RATIO 40.4 (6.6-38.0); C-REACTIVE PROTEIN 20.82 MG/DL (0.0-0.5); CALCIUM 8.8 MG/DL (8.5-10.1); CHLORIDE 118 MMOL/L (99-107); CREATININE 0.89 MG/DL (0.40-0.90); GLUCOSE 264 MG/DL (70-104); MAGNESIUM 2.6 MG/DL (1.5-2.4); POTASSIUM 4.2 MMOL/L (3.5-5.1); SODIUM 149 MMOL/L (135-145); TOTAL CARBON DIOXIDE 23.8 MMOL/L (24-32); eGFR 64 ML/MIN
[2021-03-17 04:55] LABS: ABG BASE EXCESS -5.1 mmol/L (-2.0-2.0); ABG HCO3 19.3 mmol/L (22.0-26.0); ABG OXYGEN SATURATION 93.5 % (94-97); ABG PCO2 (T) 35.4 mmHg (32.0-45.0); ABG PO2 (T) 73.9 mmHg (75.0-100.0); ALLEN'S TEST POSITIVE; FCOHb 0.2 % (0.0-3.9); FMetHb 0.1 % (0.0-1.5); FO2Hb 93.2 % (94-97); PATIENT TEMPERATURE 37.9; TOTAL HEMOGLOBIN 12.6 G/dl (12.0-16.0)
[2021-03-17] MEDS: normal saline 1000ml 1,000 ML IV SCH ×2 (05:19→14:53)
[2021-03-17] MEDS: cefTAZidime inj 2 GM in normal saline 100ml IV soln 100 ML IV SCH (07:24)
[2021-03-17] MEDS: dexamethasone 4mg/ml inj IV SCH ×2 (07:25→20:43)
[2021-03-17] MEDS: pantoprazole 40 MG vial IV SCH (07:25)
[2021-03-17] MEDS: lactobacillus rhamnosus 10,000 MMU CELLS/CAPSULE PO SCH ×2 (07:28→20:43)
[2021-03-17] MEDS: docusate sodium 100mg/10ml UD cup OGT SCH ×2 (07:28→20:43)
[2021-03-17] MEDS: enoxaparin 30mg/0.3ml syringe SUBCUT SCH ×2 (07:29→20:44)
[2021-03-17] MEDS: enoxaparin 60mg/0.6ml syringe SUBCUT SCH ×2 (07:29→20:45)
[2021-03-17] MEDS: K and/or MAG REPLACEMENT MC SCH ×2 (07:30→20:00)
[2021-03-17] MEDS: K, MAG and/or Phos replacement - Verify level? MC SCH (07:30)
[2021-03-17] MEDS: REMDESIVIR INJ 100 MG in normal saline 100ml IV soln 80 ML IV SCH (10:25)
[2021-03-17] MEDS: FENTANYL-0.9 % NACL/PF 100 ML IV PRN (11:11)
--- NOTE | 2021-03-17 12:27 | NUR ---
Reassessment: DKA resolved per MD note. Pt remains intubated and tolerating TF at goal rate with GRV WNL. Noted serum Na elevated at 149 MMOL/L today however is down from 03/16. Pt currently receiving 200 mL water flush Q4H. No changes to nutrition intervention recommendations at this time. Noted pt still with no documented BM since admit. Pt started on routine bowel care 03/15 and with additional PRN bowel care available. Will continue to follow closely. Recommendations: 1) Continuous Vital High Protein with goal rate of 60 mL/hr. To provide 1440 mL total volume/day, 1440 kcal, 126 g protein, and 1204 mL water 2) Additional 200 mL water flush Q4H; monitor serum Na 3) Prealbumin q Saturday/, daily scaled weights 4) Routine bowel care 5) DM education once stable following extubation, A1c 9.8%. Will need diagnosis by physician prior to RD education Addendum: 03/17/21 at [address] Amended: Links added.
[2021-03-17] MEDS: dexmedetomidin/NS 400mcg/100ml 100 ML IV PRN ×2 (14:12→23:55)
[2021-03-17] MEDS: acetaminophen 325mg tablet OGT PRN ×2 (15:39→23:59)
[2021-03-17] MEDS: insulin glargine (Lantus) pen - multi-dose SQ SCH (20:26)
[2021-03-17] MEDS: cefepime 2g/NS 100ml ADVANTAGE 100 ML IV SCH (20:43)
[2021-03-18] VITALS (24 sets, daily range): BP systolic 127–191; BP diastolic 65–92
[2021-03-18] MEDS: insulin regular, human U-100 3ml vial - multi-dose SQ SCH ×4 (02:13→20:39)
[2021-03-18 03:54] LABS: BASOPHILS % (AUTO) 0.3 % (0-1); EOSINOPHILS % (AUTO) 0 % (0-6); HEMATOCRIT 37.7 % (35.0-45.0); HEMOGLOBIN 12.2 g/dl (12.0-16.0); LYMPHOCYTES # (AUTO) 0.7 X10'3 (1.1-4.8); LYMPHOCYTES % (AUTO) 4.4 % (21-51); MEAN CORPUSCULAR HEMOGLOBIN 28.6 PG (27.0-31.0); MEAN CORPUSCULAR HGB CONC 32.3 g/dL (33.0-36.5); MEAN CORPUSCULAR VOLUME 88.4 FL (78-98); MEAN PLATELET VOLUME 9.9 FL (7.4-10.4); MONOCYTES # (AUTO) 1.4 X10'3 (0-0.9); MONOCYTES % (AUTO) 8.2 % (2-12); NEUTROPHILS # (AUTO) 14.5 X10'3 (1.8-7.7); NEUTROPHILS % (AUTO) 87.1 % (42-75); PLATELET COUNT 200 X10'3 (140-440); RED BLOOD COUNT 4.26 X10'6 (4.20-5.60); RED CELL DISTRIBUTION WIDTH 15.3 % (11.5-14.5); WHITE BLOOD COUNT 16.6 X10'3 (4.5-11.0)
[2021-03-18 03:55] LABS: D-DIMER 1.18 MG/L FEU (0-0.50); PARTIAL THROMBOPLASTIN TIME 32 SECONDS (22-32)
[2021-03-18 03:59] LABS: ALBUMIN 1.5 G/DL (3.4-5.0); ANION GAP 6 (8-16); BLOOD UREA NITROGEN 33 MG/DL (7-18); BUN/CREATININE RATIO 40.7 (6.6-38.0); C-REACTIVE PROTEIN 10.16 MG/DL (0.0-0.5); CALCIUM 8.5 MG/DL (8.5-10.1); CHLORIDE 117 MMOL/L (99-107); CREATININE 0.81 MG/DL (0.40-0.90); GLUCOSE 233 MG/DL (70-104); MAGNESIUM 2.4 MG/DL (1.5-2.4); POTASSIUM 3.9 MMOL/L (3.5-5.1); SODIUM 149 MMOL/L (135-145); TOTAL CARBON DIOXIDE 26.2 MMOL/L (24-32); eGFR 71 ML/MIN
[2021-03-18] MEDS: FENTANYL-0.9 % NACL/PF 100 ML IV PRN (04:31)
[2021-03-18 04:40] LABS: ABG OXYGEN SATURATION 91.8 % (94-97); ABG PCO2 (T) 27.3 mmHg (32.0-45.0); ABG PO2 (T) 64.4 mmHg (75.0-100.0); ALLEN'S TEST POSITIVE; FCOHb 0.9 % (0.0-3.9); PATIENT TEMPERATURE 38.5; PEEP 5 cm H2O; RESPIRATORY RATE 20 b/min; TIDAL VOLUME 450 mL; TOTAL HEMOGLOBIN 13.5 G/dl (12.0-16.0)
[2021-03-18] MEDS ORDERED: furosemide 40mg/4ml inj IV ONE (04:50)
[2021-03-18] MEDS ORDERED: labetalol 20mg/4ml (5mg/ml) syringe IV PRN (04:55)
--- NOTE | 2021-03-18 06:31 | NUR ---
Patient in room CICU 2008. I have received report from Bryan CARR and had the opportunity to ask questions and assume patient care.
[2021-03-18] MEDS: pantoprazole 40 MG vial IV SCH (07:39)
[2021-03-18] MEDS: cefepime 2g/NS 100ml ADVANTAGE 100 ML IV SCH ×2 (07:39→23:36)
[2021-03-18] MEDS: docusate sodium 100mg/10ml UD cup OGT SCH ×2 (07:39→20:25)
[2021-03-18] MEDS: acetaminophen 325mg tablet OGT PRN ×3 (07:40→23:33)
[2021-03-18] MEDS: lactobacillus rhamnosus 10,000 MMU CELLS/CAPSULE PO SCH ×2 (07:40→20:27)
[2021-03-18] MEDS: enoxaparin 30mg/0.3ml syringe SUBCUT SCH ×2 (07:41→20:26)
[2021-03-18] MEDS: dexamethasone 4mg/ml inj IV SCH ×2 (07:41→20:27)
[2021-03-18] MEDS: enoxaparin 60mg/0.6ml syringe SUBCUT SCH ×2 (07:41→20:26)
[2021-03-18] MEDS: K, MAG and/or Phos replacement - Verify level? MC SCH (08:00)
[2021-03-18] MEDS: dexmedetomidin/NS 400mcg/100ml 100 ML IV PRN ×5 (08:58→23:54)
[2021-03-18] MEDS: normal saline 1000ml 1,000 ML IV SCH ×2 (16:06→19:24)
--- NOTE | 2021-03-18 16:08 | NUR ---
Patient in room CICU 2008. I have received report from Jenny CARR and had the opportunity to ask questions and assume patient care.
--- NOTE | 2021-03-18 18:20 | NUR ---
Problems reprioritized. Patient report given, questions answered & plan of care reviewed with Nohemi CARR.
--- NOTE | 2021-03-18 18:32 | NUR ---
Patient in room CICU 2008. I have received report from Shanique CARR and had the opportunity to ask questions and assume patient care.
[2021-03-18] MEDS: polyethylene glycol 3350 17gm powd pack PO SCH (20:26)
[2021-03-18] MEDS: insulin glargine (Lantus) pen - multi-dose SQ SCH (20:40)
[2021-03-19] VITALS (24 sets, daily range): BP systolic 58–197; BP diastolic 31–105
[2021-03-19] MEDS: FENTANYL-0.9 % NACL/PF 100 ML IV PRN ×3 (01:29→20:58)
[2021-03-19] MEDS: insulin regular, human U-100 3ml vial - multi-dose SQ SCH ×4 (02:36→20:35)
[2021-03-19] MEDS: dexmedetomidin/NS 400mcg/100ml 100 ML IV PRN ×4 (03:07→18:21)
[2021-03-19 03:28] LABS: ABG BASE EXCESS 7.8 mmol/L (-2.0-2.0); ABG HCO3 30.7 mmol/L (22.0-26.0); ABG OXYGEN SATURATION 93.5 % (94-97); ABG PCO2 (T) 38.7 mmHg (32.0-45.0); ABG PO2 (T) 68.1 mmHg (75.0-100.0); ALLEN'S TEST POSITIVE; FCOHb 0.7 % (0.0-3.9); FMetHb 0.1 % (0.0-1.5); FO2Hb 92.8 % (94-97); PATIENT TEMPERATURE 37.9; PEEP 5 cm H2O; TOTAL HEMOGLOBIN 14.2 G/dl (12.0-16.0)
[2021-03-19 03:46] LABS: BASOPHILS % (AUTO) 0.1 % (0-1); EOSINOPHILS % (AUTO) 0 % (0-6); HEMATOCRIT 40.9 % (35.0-45.0); HEMOGLOBIN 13.2 g/dl (12.0-16.0); LYMPHOCYTES # (AUTO) 0.8 X10'3 (1.1-4.8); LYMPHOCYTES % (AUTO) 4.3 % (21-51); MEAN CORPUSCULAR HEMOGLOBIN 28.7 PG (27.0-31.0); MEAN CORPUSCULAR HGB CONC 32.3 g/dL (33.0-36.5); MEAN CORPUSCULAR VOLUME 88.8 FL (78-98); MEAN PLATELET VOLUME 9.8 FL (7.4-10.4); MONOCYTES % (AUTO) 10.7 % (2-12); NEUTROPHILS # (AUTO) 15.7 X10'3 (1.8-7.7); NEUTROPHILS % (AUTO) 84.9 % (42-75); PLATELET COUNT 188 X10'3 (140-440); RED BLOOD COUNT 4.61 X10'6 (4.20-5.60); RED CELL DISTRIBUTION WIDTH 15.1 % (11.5-14.5); WHITE BLOOD COUNT 18.5 X10'3 (4.5-11.0)
[2021-03-19 04:04] LABS: ALBUMIN 1.6 G/DL (3.4-5.0); ANION GAP 4 (8-16); BLOOD UREA NITROGEN 24 MG/DL (7-18); BUN/CREATININE RATIO 31.2 (6.6-38.0); C-REACTIVE PROTEIN 6.51 MG/DL (0.0-0.5); CALCIUM 8.1 MG/DL (8.5-10.1); CHLORIDE 110 MMOL/L (99-107); CREATININE 0.77 MG/DL (0.40-0.90); GLUCOSE 229 MG/DL (70-104); MAGNESIUM 2.3 MG/DL (1.5-2.4); POTASSIUM 3.4 MMOL/L (3.5-5.1); SODIUM 147 MMOL/L (135-145); eGFR 75 ML/MIN
[2021-03-19 04:25] LABS: D-DIMER 1.64 MG/L FEU (0-0.50)
[2021-03-19 04:31] LABS: PARTIAL THROMBOPLASTIN TIME 34 SECONDS (22-32)
--- NOTE | 2021-03-19 06:19 | NUR ---
Problems reprioritized. Patient report given, questions answered & plan of care reviewed with Emmett/Izabel CARR.
[2021-03-19] MEDS: dexamethasone 4mg/ml inj IV SCH ×2 (07:26→20:19)
[2021-03-19] MEDS: docusate sodium 100mg/10ml UD cup OGT SCH ×2 (07:27→20:18)
[2021-03-19] MEDS: cefepime 2g/NS 100ml ADVANTAGE 100 ML IV SCH ×2 (07:28→16:27)
[2021-03-19] MEDS: pantoprazole 40 MG vial IV SCH (07:28)
[2021-03-19 07:29] LABS: TOTAL CELLS COUNTED 100
[2021-03-19] MEDS: enoxaparin 30mg/0.3ml syringe SUBCUT SCH ×2 (07:29→20:18)
[2021-03-19] MEDS: lactobacillus rhamnosus 10,000 MMU CELLS/CAPSULE PO SCH ×2 (07:29→20:19)
[2021-03-19] MEDS: enoxaparin 60mg/0.6ml syringe SUBCUT SCH ×2 (07:30→20:18)
[2021-03-19 07:31] LABS: ELLIPTOCYTES FEW; PLATELET ESTIMATE NORMAL; POLYCHROMASIA FEW; TEAR DROP CELLS 1+
[2021-03-19] MEDS: K, MAG and/or Phos replacement - Verify level? MC SCH (08:00)
--- NOTE | 2021-03-19 18:15 | NUR ---
Patient in room CICU 2008. I have received report from Emmett and Izabel RNs and had the opportunity to ask questions and assume patient care.
[2021-03-19] MEDS: polyethylene glycol 3350 17gm powd pack PO SCH (20:17)
[2021-03-19] MEDS: insulin glargine (Lantus) pen - multi-dose SQ SCH (20:37)
[2021-03-19] MEDS: acetaminophen 325mg tablet OGT PRN (20:57)
[2021-03-20] VITALS (26 sets, daily range): BP systolic 68–195; BP diastolic 28–87
[2021-03-20] MEDS: cefepime 2g/NS 100ml ADVANTAGE 100 ML IV SCH ×3 (00:06→15:57)
[2021-03-20] MEDS: dexmedetomidin/NS 400mcg/100ml 100 ML IV PRN ×3 (00:06→06:45)
[2021-03-20] MEDS: insulin regular, human U-100 3ml vial - multi-dose SQ SCH ×4 (02:16→19:56)
[2021-03-20 02:58] LABS: BASOPHILS % (AUTO) 0 % (0-1); EOSINOPHILS % (AUTO) 0 % (0-6); HEMATOCRIT 38.4 % (35.0-45.0); HEMOGLOBIN 12.3 g/dl (12.0-16.0); LYMPHOCYTES # (AUTO) 0.7 X10'3 (1.1-4.8); LYMPHOCYTES % (AUTO) 3.4 % (21-51); MEAN CORPUSCULAR HEMOGLOBIN 28.5 PG (27.0-31.0); MEAN CORPUSCULAR HGB CONC 32.1 g/dL (33.0-36.5); MEAN CORPUSCULAR VOLUME 88.8 FL (78-98); MEAN PLATELET VOLUME 9.2 FL (7.4-10.4); MONOCYTES # (AUTO) 1.6 X10'3 (0-0.9); MONOCYTES % (AUTO) 8.1 % (2-12); NEUTROPHILS # (AUTO) 17.9 X10'3 (1.8-7.7); NEUTROPHILS % (AUTO) 88.5 % (42-75); PLATELET COUNT 178 X10'3 (140-440); RED BLOOD COUNT 4.33 X10'6 (4.20-5.60); RED CELL DISTRIBUTION WIDTH 15.1 % (11.5-14.5); WHITE BLOOD COUNT 20.3 X10'3 (4.5-11.0)
[2021-03-20 03:20] LABS: ALBUMIN 1.4 G/DL (3.4-5.0); ANION GAP 4 (8-16); BLOOD UREA NITROGEN 27 MG/DL (7-18); BUN/CREATININE RATIO 33.3 (6.6-38.0); CALCIUM 7.7 MG/DL (8.5-10.1); CHLORIDE 105 MMOL/L (99-107); CREATININE 0.81 MG/DL (0.40-0.90); GLUCOSE 211 MG/DL (70-104); POTASSIUM 3.5 MMOL/L (3.5-5.1); SODIUM 141 MMOL/L (135-145); TOTAL CARBON DIOXIDE 32.5 MMOL/L (24-32); TRIGLYCERIDES 96 MG/DL (20-135); eGFR 71 ML/MIN
[2021-03-20 03:28] LABS: D-DIMER 1.16 MG/L FEU (0-0.50)
[2021-03-20 03:29] LABS: PARTIAL THROMBOPLASTIN TIME 38 SECONDS (22-32)
[2021-03-20 03:33] LABS: ABG BASE EXCESS 6.8 mmol/L (-2.0-2.0); ABG HCO3 31.4 mmol/L (22.0-26.0); ABG OXYGEN SATURATION 94.7 % (94-97); ABG PCO2 (T) 47.5 mmHg (32.0-45.0); ABG PO2 (T) 79.6 mmHg (75.0-100.0); ALLEN'S TEST POSITIVE; FCOHb 0.4 % (0.0-3.9); FMetHb 0.3 % (0.0-1.5); PATIENT TEMPERATURE 38.2; PEEP 5 cm H2O; RESPIRATORY RATE 20 b/min; TIDAL VOLUME 450 mL; TOTAL HEMOGLOBIN 12.3 G/dl (12.0-16.0)
[2021-03-20] MEDS: FENTANYL-0.9 % NACL/PF 100 ML IV PRN ×2 (06:06→21:52)
--- NOTE | 2021-03-20 06:18 | NUR ---
Problems reprioritized. Patient report given, questions answered & plan of care reviewed with Emmett and Izabel RNs.
[2021-03-20] MEDS: lactobacillus rhamnosus 10,000 MMU CELLS/CAPSULE PO SCH ×2 (07:43→19:50)
[2021-03-20] MEDS: dexamethasone 4mg/ml inj IV SCH ×2 (07:43→19:49)
[2021-03-20] MEDS: pantoprazole 40 MG vial IV SCH (07:43)
[2021-03-20] MEDS: docusate sodium 100mg/10ml UD cup OGT SCH ×2 (07:43→19:47)
[2021-03-20] MEDS: enoxaparin 60mg/0.6ml syringe SUBCUT SCH ×2 (07:44→19:51)
[2021-03-20] MEDS: enoxaparin 30mg/0.3ml syringe SUBCUT SCH ×2 (07:45→19:51)
[2021-03-20] MEDS: K, MAG and/or Phos replacement - Verify level? MC SCH (07:46)
[2021-03-20] MEDS: acetaminophen 325mg tablet OGT PRN (09:20)
[2021-03-20] MEDS: midazolam 100mg in NS 100ml 100 ML IV PRN (10:14)
--- NOTE | 2021-03-20 11:27 | NUR ---
F/u 03/20: Pt tolerating TF at goal GRV WNL. Noted -4.1kg wt change w/ -2.6L fluid balance since yesterday per EMR. Still no BM since admit at least 7 days receiving routine colace and miralax. FREDERICK d/w RN regarding additional bowel care if MD agreeable. Will continue to monitor. Recommendations: 1) Continuous Vital High Protein with goal rate of 60 mL/hr. To provide 1440 mL total volume/day, 1440 kcal, 126 g protein, and 1204 mL water 2) Additional 200 mL water flush Q4H; monitor serum Na 3) Prealbumin q Saturday/, daily scaled weights 4) Routine bowel care; 7 days constipation 5) DM education once stable following extubation, A1c 9.8%. Will need new DM diagnosis by physician prior to RD education Addendum: 03/20/21 at [address] Amended: Links added.
--- NOTE | 2021-03-20 18:30 | NUR ---
Patient in room CICU 2008. I have received report from Emmett/Izabel CARR and had the opportunity to ask questions and assume patient care.
[2021-03-20] MEDS: polyethylene glycol 3350 17gm powd pack PO SCH (19:50)
[2021-03-20] MEDS: insulin glargine (Lantus) pen - multi-dose SQ SCH (19:58)
[2021-03-20] MEDS: QUEtiapine 25mg tablet NG SCH ×2 (21:00→21:15)
[2021-03-20] MEDS: ciprofloxacin 250mg tablet PO SCH (21:49)
[2021-03-21] VITALS (24 sets, daily range): BP systolic 102–184; BP diastolic 42–104
[2021-03-21] MEDS: cefepime 2g/NS 100ml ADVANTAGE 100 ML IV SCH ×3 (00:05→17:03)
[2021-03-21] MEDS: insulin regular, human U-100 3ml vial - multi-dose SQ SCH ×4 (02:03→20:13)
[2021-03-21 03:24] LABS: BASOPHILS % (AUTO) 0.1 % (0-1); EOSINOPHILS % (AUTO) 0 % (0-6); HEMOGLOBIN 11.9 g/dl (12.0-16.0); LYMPHOCYTES # (AUTO) 0.6 X10'3 (1.1-4.8); LYMPHOCYTES % (AUTO) 2.9 % (21-51); MEAN CORPUSCULAR HEMOGLOBIN 28.8 PG (27.0-31.0); MEAN CORPUSCULAR HGB CONC 32.2 g/dL (33.0-36.5); MEAN CORPUSCULAR VOLUME 89.3 FL (78-98); MEAN PLATELET VOLUME 9.6 FL (7.4-10.4); MONOCYTES # (AUTO) 0.9 X10'3 (0-0.9); MONOCYTES % (AUTO) 4.4 % (2-12); NEUTROPHILS # (AUTO) 19.1 X10'3 (1.8-7.7); NEUTROPHILS % (AUTO) 92.6 % (42-75); PLATELET COUNT 171 X10'3 (140-440); RED BLOOD COUNT 4.15 X10'6 (4.20-5.60); RED CELL DISTRIBUTION WIDTH 15.3 % (11.5-14.5); WHITE BLOOD COUNT 20.6 X10'3 (4.5-11.0)
[2021-03-21 03:34] LABS: D-DIMER 0.74 MG/L FEU (0-0.50); PARTIAL THROMBOPLASTIN TIME 37 SECONDS (22-32)
[2021-03-21 03:53] LABS: ALBUMIN 1.4 G/DL (3.4-5.0); ANION GAP 2 (8-16); BLOOD UREA NITROGEN 28 MG/DL (7-18); BUN/CREATININE RATIO 35.4 (6.6-38.0); C-REACTIVE PROTEIN 20.64 MG/DL (0.0-0.5); CALCIUM 8.1 MG/DL (8.5-10.1); CHLORIDE 105 MMOL/L (99-107); CREATININE 0.79 MG/DL (0.40-0.90); GLUCOSE 195 MG/DL (70-104); MAGNESIUM 1.9 MG/DL (1.5-2.4); SODIUM 140 MMOL/L (135-145); TOTAL CARBON DIOXIDE 32.6 MMOL/L (24-32); eGFR 73 ML/MIN
[2021-03-21 04:14] LABS: ABG HCO3 28.3 mmol/L (22.0-26.0); ABG PCO2 (T) 39.1 mmHg (32.0-45.0); ABG PO2 (T) 75.9 mmHg (75.0-100.0); ALLEN'S TEST Yes; FCOHb 0.4 % (0.0-3.9); FMetHb 0.1 % (0.0-1.5); FO2Hb 94.5 % (94-97); PEEP 5 cm H2O; RESPIRATORY RATE 20 b/min; TIDAL VOLUME 450 mL; TOTAL HEMOGLOBIN 12.8 G/dl (12.0-16.0)
--- NOTE | 2021-03-21 06:20 | NUR ---
Problems reprioritized. Patient report given, questions answered & plan of care reviewed with Emmett CARR.
[2021-03-21] MEDS: lactobacillus rhamnosus 10,000 MMU CELLS/CAPSULE PO SCH ×2 (07:56→20:10)
[2021-03-21] MEDS: dexamethasone 4mg/ml inj IV SCH (07:56)
[2021-03-21] MEDS: pantoprazole 40 MG vial IV SCH (07:57)
[2021-03-21] MEDS: enoxaparin 60mg/0.6ml syringe SUBCUT SCH ×2 (07:57→20:10)
[2021-03-21] MEDS: docusate sodium 100mg/10ml UD cup OGT SCH ×2 (07:57→20:10)
[2021-03-21] MEDS: enoxaparin 30mg/0.3ml syringe SUBCUT SCH ×2 (07:59→20:11)
[2021-03-21] MEDS: K, MAG and/or Phos replacement - Verify level? MC SCH (08:00)
[2021-03-21] MEDS: OLANZAPINE 5 MG TABLET PO SCH (11:47)
[2021-03-21] MEDS: ciprofloxacin 250mg tablet PO SCH ×2 (11:48→21:48)
[2021-03-21] MEDS: FENTANYL-0.9 % NACL/PF 100 ML IV PRN (14:30)
[2021-03-21] MEDS: methylPREDNISolone sod succ 125mg/2ml vial IV SCH (17:03)
--- NOTE | 2021-03-21 18:09 | NUR ---
Problems reprioritized. Patient report given, questions answered & plan of care reviewed with LILLY Muller.
--- NOTE | 2021-03-21 18:12 | NUR ---
Patient in room CICU 2008. I have received report from Emmett CARR and had the opportunity to ask questions and assume patient care.
[2021-03-21] MEDS: insulin glargine (Lantus) pen - multi-dose SQ SCH (20:14)
[2021-03-21] MEDS: QUEtiapine 25mg tablet NG SCH (20:24)
[2021-03-21] MEDS: polyethylene glycol 3350 17gm powd pack OGT SCH (20:25)
[2021-03-21] MEDS: midazolam 100mg in NS 100ml 100 ML IV PRN (23:15)
[2021-03-22] VITALS (23 sets, daily range): BP systolic 94–183; BP diastolic 47–80
[2021-03-22] MEDS: methylPREDNISolone sod succ 125mg/2ml vial IV SCH ×4 (00:05→23:21)
[2021-03-22] MEDS: cefepime 2g/NS 100ml ADVANTAGE 100 ML IV SCH ×4 (00:05→23:21)
[2021-03-22] MEDS: insulin regular, human U-100 3ml vial - multi-dose SQ SCH ×3 (02:00→20:33)
[2021-03-22 03:18] LABS: BASOPHILS % (AUTO) 0 % (0-1); EOSINOPHILS % (AUTO) 0 % (0-6); HEMATOCRIT 33.7 % (35.0-45.0); HEMOGLOBIN 10.7 g/dl (12.0-16.0); LYMPHOCYTES # (AUTO) 0.4 X10'3 (1.1-4.8); MEAN CORPUSCULAR HEMOGLOBIN 28.3 PG (27.0-31.0); MEAN CORPUSCULAR HGB CONC 31.7 g/dL (33.0-36.5); MEAN CORPUSCULAR VOLUME 89.4 FL (78-98); MEAN PLATELET VOLUME 9.1 FL (7.4-10.4); MONOCYTES # (AUTO) 0.7 X10'3 (0-0.9); MONOCYTES % (AUTO) 3.5 % (2-12); NEUTROPHILS # (AUTO) 19.4 X10'3 (1.8-7.7); NEUTROPHILS % (AUTO) 94.5 % (42-75); PLATELET COUNT 222 X10'3 (140-440); RED BLOOD COUNT 3.76 X10'6 (4.20-5.60); RED CELL DISTRIBUTION WIDTH 15.5 % (11.5-14.5); WHITE BLOOD COUNT 20.5 X10'3 (4.5-11.0)
[2021-03-22 03:38] LABS: D-DIMER 0.67 MG/L FEU (0-0.50); PARTIAL THROMBOPLASTIN TIME 32 SECONDS (22-32)
[2021-03-22 03:43] LABS: ABG HCO3 35.1 mmol/L (22.0-26.0); ABG PCO2 (T) 45.6 mmHg (32.0-45.0); ALLEN'S TEST POSITIVE; FCOHb 0.3 % (0.0-3.9); FMetHb 0.3 % (0.0-1.5); FO2Hb 93.4 % (94-97); PATIENT TEMPERATURE 37.6; PEEP 5 cm H2O; RESPIRATORY RATE 20 b/min; TIDAL VOLUME 450 mL; TOTAL HEMOGLOBIN 11.4 G/dl (12.0-16.0)
[2021-03-22 03:45] LABS: ALBUMIN 1.3 G/DL (3.4-5.0); ANION GAP 0 (8-16); BLOOD UREA NITROGEN 23 MG/DL (7-18); C-REACTIVE PROTEIN 13.63 MG/DL (0.0-0.5); CALCIUM 7.9 MG/DL (8.5-10.1); CHLORIDE 107 MMOL/L (99-107); CREATININE 0.59 MG/DL (0.40-0.90); GLUCOSE 200 MG/DL (70-104); MAGNESIUM 2.3 MG/DL (1.5-2.4); POTASSIUM 3.9 MMOL/L (3.5-5.1); SODIUM 142 MMOL/L (135-145); TOTAL CARBON DIOXIDE 34.6 MMOL/L (24-32); eGFR > 90 ML/MIN
--- NOTE | 2021-03-22 05:59 | NUR ---
Pt much more awake. Appreciated hearing her daughter's and 's voices on the telephone. Sore from being in bed, she helped some with turning and was willing to work with PT if they were available. Better control of her anxiety, High HR and BP with newly added PO meds. Some 1mg IV versed boluses were given to keep pt comfortable during interventions, but will rapidly drop BP if 2mg is given.
--- NOTE | 2021-03-22 06:17 | NUR ---
Problems reprioritized. Patient report given, questions answered & plan of care reviewed with Bryan CARR.
[2021-03-22] MEDS: enoxaparin 30mg/0.3ml syringe SUBCUT SCH ×2 (08:05→20:14)
[2021-03-22] MEDS: docusate sodium 100mg/10ml UD cup OGT SCH ×2 (08:05→20:15)
[2021-03-22] MEDS: lactobacillus rhamnosus 10,000 MMU CELLS/CAPSULE PO SCH ×2 (08:05→20:15)
[2021-03-22] MEDS: OLANZAPINE 5 MG TABLET PO SCH (08:05)
[2021-03-22] MEDS: enoxaparin 60mg/0.6ml syringe SUBCUT SCH ×2 (08:05→20:15)
[2021-03-22] MEDS: lansoprazole 15mg solutab NG SCH (08:06)
[2021-03-22] MEDS: K, MAG and/or Phos replacement - Verify level? MC SCH (08:46)
[2021-03-22] MEDS: ciprofloxacin 250mg tablet PO SCH ×2 (10:22→21:25)
--- NOTE | 2021-03-22 13:00 | NUR ---
Patient went to IR, returned approx 1300, sheath remains in place, TPA and heparin are off. Will follow up with ACT per KURT RN. Addendum: 03/22/21 at 1350 by Bryan Crowder RN Disregard above note, charted on wrong patient.
--- NOTE | 2021-03-22 18:30 | NUR ---
Patient in room CICU 2008. I have received report from Bryan CARR and had the opportunity to ask questions and assume patient care.
[2021-03-22] MEDS: QUEtiapine 25mg tablet NG SCH (20:15)
[2021-03-22] MEDS: polyethylene glycol 3350 17gm powd pack OGT SCH (20:15)
[2021-03-22] MEDS: insulin glargine (Lantus) pen - multi-dose SQ SCH (20:34)
[2021-03-23] VITALS (24 sets, daily range): BP systolic 99–191; BP diastolic 48–110
[2021-03-23] MEDS: insulin regular, human U-100 3ml vial - multi-dose SQ SCH ×3 (03:17→20:13)
[2021-03-23] MEDS: midazolam 100mg in NS 100ml 100 ML IV PRN (03:18)
[2021-03-23] MEDS: FENTANYL-0.9 % NACL/PF 100 ML IV PRN ×2 (03:23→16:22)
[2021-03-23 03:43] LABS: ABG BASE EXCESS -1.6 mmol/L (-2.0-2.0); ABG HCO3 21.2 mmol/L (22.0-26.0); ABG OXYGEN SATURATION 91.6 % (94-97); ABG PCO2 (T) 29.7 mmHg (32.0-45.0); ABG PO2 (T) 67.9 mmHg (75.0-100.0); ALLEN'S TEST POSITIVE; FCOHb 0.3 % (0.0-3.9); FMetHb 0.1 % (0.0-1.5); FO2Hb 91.2 % (94-97); PATIENT TEMPERATURE 37.2; PEEP 5 cm H2O; RESPIRATORY RATE 20 b/min; TIDAL VOLUME 450 mL
[2021-03-23 04:03] LABS: BASOPHILS % (AUTO) 0.1 % (0-1); EOSINOPHILS % (AUTO) 0 % (0-6); HEMOGLOBIN 12.2 g/dl (12.0-16.0); LYMPHOCYTES # (AUTO) 0.3 X10'3 (1.1-4.8); MEAN CORPUSCULAR HEMOGLOBIN 28.7 PG (27.0-31.0); MEAN CORPUSCULAR HGB CONC 32.1 g/dL (33.0-36.5); MEAN CORPUSCULAR VOLUME 89.5 FL (78-98); MEAN PLATELET VOLUME 8.9 FL (7.4-10.4); MONOCYTES # (AUTO) 0.8 X10'3 (0-0.9); MONOCYTES % (AUTO) 5.1 % (2-12); NEUTROPHILS # (AUTO) 13.7 X10'3 (1.8-7.7); NEUTROPHILS % (AUTO) 92.8 % (42-75); PLATELET COUNT 276 X10'3 (140-440); RED BLOOD COUNT 4.24 X10'6 (4.20-5.60); RED CELL DISTRIBUTION WIDTH 15.2 % (11.5-14.5); WHITE BLOOD COUNT 14.8 X10'3 (4.5-11.0)
[2021-03-23 04:18] LABS: PARTIAL THROMBOPLASTIN TIME 27 SECONDS (22-32)
[2021-03-23 04:25] LABS: ALBUMIN 1.4 G/DL (3.4-5.0); ANION GAP 3 (8-16); BLOOD UREA NITROGEN 26 MG/DL (7-18); BUN/CREATININE RATIO 42.6 (6.6-38.0); C-REACTIVE PROTEIN 7.97 MG/DL (0.0-0.5); CALCIUM 8.2 MG/DL (8.5-10.1); CHLORIDE 108 MMOL/L (99-107); CREATININE 0.61 MG/DL (0.40-0.90); GLUCOSE 182 MG/DL (70-104); MAGNESIUM 2.5 MG/DL (1.5-2.4); POTASSIUM 3.7 MMOL/L (3.5-5.1); SODIUM 143 MMOL/L (135-145); TOTAL CARBON DIOXIDE 31.7 MMOL/L (24-32); eGFR > 90 ML/MIN
--- NOTE | 2021-03-23 06:22 | NUR ---
Problems reprioritized. Patient report given, questions answered & plan of care reviewed with Ivania CARR.
[2021-03-23] MEDS: K, MAG and/or Phos replacement - Verify level? MC SCH (08:00)
[2021-03-23] MEDS: cefepime 2g/NS 100ml ADVANTAGE 100 ML IV SCH ×2 (08:49→16:22)
[2021-03-23] MEDS: docusate sodium 100mg/10ml UD cup OGT SCH ×2 (08:50→19:55)
[2021-03-23] MEDS: lactobacillus rhamnosus 10,000 MMU CELLS/CAPSULE PO SCH ×2 (08:50→19:55)
[2021-03-23] MEDS: methylPREDNISolone sod succ 125mg/2ml vial IV SCH ×2 (08:50→16:22)
[2021-03-23] MEDS: lansoprazole 15mg solutab NG SCH (08:51)
[2021-03-23] MEDS: enoxaparin 60mg/0.6ml syringe SUBCUT SCH ×2 (08:51→19:56)
[2021-03-23] MEDS: enoxaparin 30mg/0.3ml syringe SUBCUT SCH ×2 (08:52→19:57)
[2021-03-23] MEDS: OLANZAPINE 5 MG TABLET PO SCH (08:55)
[2021-03-23] MEDS: ciprofloxacin 250mg tablet PO SCH (10:36)
[2021-03-23] MEDS ORDERED: OLANZAPINE 5 MG TABLET PO ONE (11:05)
--- NOTE | 2021-03-23 11:19 | NUR ---
Reassessment: Pt remains intubated and tolerating TF at goal rate with GRV WNL. LBM 03/22 per I&O. Pt receiving routine Colace and Miralax with PRN MoM available last given 03/18 per EMR. No changes to recommended nutrition interventions at this time. Will continue to follow. Recommendations: 1) Continuous Vital High Protein via OGT with goal rate of 60 mL/hr. To provide 1440 mL total volume/day, 1440 kcal, 126 g protein, and 1204 mL water 2) Additional 200 mL water flush Q4H; monitor serum Na 3) Prealbumin q Saturday/, daily scaled weights 4) Routine bowel care 5) DM education once stable following extubation, A1c 9.8%. Will need new DM diagnosis by physician prior to RD education Addendum: 03/23/21 at [address] Amended: Links added.
--- NOTE | 2021-03-23 13:40 | NUR ---
dr Alvarado called reference patients hypertension
[2021-03-23] MEDS: diltiazem 30mg tablet PO SCH ×2 (14:35→19:55)
--- NOTE | 2021-03-23 18:30 | NUR ---
Problems reprioritized. Patient report given, questions answered & plan of care reviewed with Amber CARR.
[2021-03-23] MEDS: insulin glargine (Lantus) pen - multi-dose SQ SCH (20:18)
[2021-03-24] VITALS (23 sets, daily range): BP systolic 83–160; BP diastolic 41–72
[2021-03-24] MEDS: cefepime 2g/NS 100ml ADVANTAGE 100 ML IV SCH ×3 (00:18→16:15)
[2021-03-24] MEDS: polyethylene glycol 3350 17gm powd pack OGT SCH ×2 (00:18→21:51)
[2021-03-24] MEDS: ciprofloxacin 250mg tablet PO SCH ×3 (00:18→21:51)
[2021-03-24] MEDS: methylPREDNISolone sod succ 125mg/2ml vial IV SCH ×3 (00:18→16:14)
[2021-03-24 02:31] LABS: ABG BASE EXCESS 5.4 mmol/L (-2.0-2.0); ABG HCO3 29.6 mmol/L (22.0-26.0); ABG OXYGEN SATURATION 90.3 % (94-97); ABG PCO2 (T) 42.3 mmHg (32.0-45.0); ALLEN'S TEST POSITIVE; FCOHb 0.3 % (0.0-3.9); FMetHb 0.1 % (0.0-1.5); FO2Hb 89.9 % (94-97); PATIENT TEMPERATURE 37.4; PEEP 5 cm H2O; RESPIRATORY RATE 18 b/min; TIDAL VOLUME 450 mL; TOTAL HEMOGLOBIN 10.9 G/dl (12.0-16.0)
[2021-03-24] MEDS: diltiazem 30mg tablet PO SCH ×4 (03:00→20:00)
[2021-03-24] MEDS: midazolam 100mg in NS 100ml 100 ML IV PRN (03:01)
[2021-03-24 03:43] LABS: BASOPHILS % (AUTO) 0.2 % (0-1); EOSINOPHILS % (AUTO) 0 % (0-6); HEMATOCRIT 30.7 % (35.0-45.0); LYMPHOCYTES # (AUTO) 0.9 X10'3 (1.1-4.8); LYMPHOCYTES % (AUTO) 5.1 % (21-51); MEAN CORPUSCULAR HEMOGLOBIN 28.8 PG (27.0-31.0); MEAN CORPUSCULAR HGB CONC 32.6 g/dL (33.0-36.5); MEAN CORPUSCULAR VOLUME 88.2 FL (78-98); MEAN PLATELET VOLUME 8.5 FL (7.4-10.4); MONOCYTES % (AUTO) 5.8 % (2-12); NEUTROPHILS # (AUTO) 15.3 X10'3 (1.8-7.7); NEUTROPHILS % (AUTO) 88.9 % (42-75); PLATELET COUNT 319 X10'3 (140-440); RED BLOOD COUNT 3.48 X10'6 (4.20-5.60); WHITE BLOOD COUNT 17.2 X10'3 (4.5-11.0)
[2021-03-24 04:00] LABS: ALBUMIN 1.4 G/DL (3.4-5.0); ANION GAP -1 (8-16); BLOOD UREA NITROGEN 24 MG/DL (7-18); BUN/CREATININE RATIO 43.6 (6.6-38.0); CALCIUM 8.5 MG/DL (8.5-10.1); CHLORIDE 109 MMOL/L (99-107); CREATININE 0.55 MG/DL (0.40-0.90); D-DIMER 1.48 MG/L FEU (0-0.50); GLUCOSE 135 MG/DL (70-104); MAGNESIUM 2.7 MG/DL (1.5-2.4); PARTIAL THROMBOPLASTIN TIME 24 SECONDS (22-32); SODIUM 140 MMOL/L (135-145); TOTAL CARBON DIOXIDE 32.2 MMOL/L (24-32); eGFR > 90 ML/MIN
--- NOTE | 2021-03-24 06:37 | NUR ---
Patient in room CICU 2008. I have received report from Amber CARR and had the opportunity to ask questions and assume patient care.
[2021-03-24] MEDS: enoxaparin 30mg/0.3ml syringe SUBCUT SCH ×2 (07:37→21:50)
[2021-03-24] MEDS: enoxaparin 60mg/0.6ml syringe SUBCUT SCH ×2 (07:37→21:50)
[2021-03-24] MEDS: lansoprazole 15mg solutab NG SCH (07:38)
[2021-03-24] MEDS: OLANZAPINE 5 MG TABLET PO SCH (07:38)
[2021-03-24] MEDS: lactobacillus rhamnosus 10,000 MMU CELLS/CAPSULE PO SCH ×2 (07:39→21:49)
[2021-03-24] MEDS: K, MAG and/or Phos replacement - Verify level? MC SCH (08:00)
[2021-03-24] MEDS: docusate sodium 100mg/10ml UD cup OGT SCH ×2 (08:00→21:49)
[2021-03-24] MEDS: insulin regular, human U-100 3ml vial - multi-dose SQ SCH ×3 (09:29→22:12)
--- NOTE | 2021-03-24 10:00 | NUR ---
WAS INFORMED THAT THE PATIENTS HAS CALLED 3 TIMES WHILE I WAS IN THE ROOM. ALSO THAT THE DAUGHTER HAD CALLED TWICE. SPOKE TO , UPDATE GIVEN, EXPLAINED HOW BUSY WE WERE AND THAT MULTIPLE PHONES CALLS TOOK TIME AWAY FROM PATIENT CARE. V HE SAID HE UNDERSTOOD. CALLED PT AND PUT PHONE TO HER EAR AND HE TALKED AND PRAYER WITH HER FOR OVER 30 MINUTES. ABOUT AN HOUR LATER DAUGHTER CALLED AND WANTED FULL UPDATE, I TOLD HER TO CHECK WITH HER FATHER , SHE SAID THAT SHE WOULD CALL TWICE TO 3 TIMES EVERY DAY NO MATTER WHAT. UPDATE GIVEN, PT ASKING VERY TECHNICAL MEDICAL QUESTIONS, I COULD HEAR HER TYPING ANY INFORMATION GIVEN IN THE BACKGROUND. PT DID NOT UNDERSTAND ABOUT PATIENTS MEDICAL CONDITION, ASKING WHEN SHE WOULD BE TRANSFERRED SO THEY COULD VISIT. I EXPLAINED TO HER THAT HER MOTHER WAS VERY ILL AND COULD NOT BE TRANSFERRED OUT OF THE ICU UNTIL SHE WAS EXTUBATED AND HAD MUCH IMPROVEMENT. DAUGHTER SAID SHE WOULD CALL BACK AT 8 PM TO GET UPDATE FROM NIGHT NURSE. I EXPLAINED TO HER THAT WAS A VERY BUSY TIME.
[2021-03-24] MEDS ORDERED: ciprofloxacin 250mg tablet PO ONE (11:30)
[2021-03-24] MEDS: FENTANYL-0.9 % NACL/PF 100 ML IV PRN ×2 (14:06→21:49)
--- NOTE | 2021-03-24 18:30 | NUR ---
Patient in room [facility] 2008. I have received report from Nicole CARR and had the opportunity to ask questions and assume patient care. Addendum: 03/24/21 at 2240 by Jeannette Hernandez RN Amended: Links added.
[2021-03-25] VITALS (25 sets, daily range): BP systolic 88–170; BP diastolic 43–87
[2021-03-25] MEDS: cefepime 2g/NS 100ml ADVANTAGE 100 ML IV SCH ×4 (00:35→23:53)
[2021-03-25] MEDS: methylPREDNISolone sod succ 125mg/2ml vial IV SCH ×4 (00:35→23:54)
[2021-03-25] MEDS: insulin glargine (Lantus) pen - multi-dose SQ SCH ×2 (00:39→21:26)
[2021-03-25] MEDS: diltiazem 30mg tablet PO SCH ×4 (02:43→19:44)
[2021-03-25 02:50] LABS: ABG BASE EXCESS 7.9 mmol/L (-2.0-2.0); ABG HCO3 32.6 mmol/L (22.0-26.0); ABG OXYGEN SATURATION 92.1 % (94-97); ABG PCO2 (T) 47.2 mmHg (32.0-45.0); ALLEN'S TEST POSITIVE; FCOHb 0.3 % (0.0-3.9); FMetHb 0.1 % (0.0-1.5); FO2Hb 91.7 % (94-97); PATIENT TEMPERATURE 37.4; PEEP 5 cm H2O; RESPIRATORY RATE 18 b/min; TIDAL VOLUME 450 mL; TOTAL HEMOGLOBIN 10.1 G/dl (12.0-16.0)
[2021-03-25] MEDS: insulin regular, human U-100 3ml vial - multi-dose SQ SCH ×3 (03:10→14:20)
[2021-03-25 03:17] LABS: BASOPHILS % (AUTO) 0.1 % (0-1); EOSINOPHILS % (AUTO) 0 % (0-6); HEMATOCRIT 27.1 % (35.0-45.0); HEMOGLOBIN 8.6 g/dl (12.0-16.0); LYMPHOCYTES # (AUTO) 0.4 X10'3 (1.1-4.8); LYMPHOCYTES % (AUTO) 2.6 % (21-51); MEAN CORPUSCULAR HEMOGLOBIN 28.7 PG (27.0-31.0); MEAN CORPUSCULAR HGB CONC 31.9 g/dL (33.0-36.5); MEAN CORPUSCULAR VOLUME 90.1 FL (78-98); MEAN PLATELET VOLUME 8.6 FL (7.4-10.4); MONOCYTES # (AUTO) 0.5 X10'3 (0-0.9); MONOCYTES % (AUTO) 3.9 % (2-12); NEUTROPHILS % (AUTO) 93.4 % (42-75); PLATELET COUNT 266 X10'3 (140-440); RED BLOOD COUNT 3.01 X10'6 (4.20-5.60); RED CELL DISTRIBUTION WIDTH 15.6 % (11.5-14.5); WHITE BLOOD COUNT 13.9 X10'3 (4.5-11.0)
[2021-03-25 03:38] LABS: PARTIAL THROMBOPLASTIN TIME 30 SECONDS (22-32)
[2021-03-25 03:42] LABS: D-DIMER 1.09 MG/L FEU (0-0.50)
[2021-03-25 03:48] LABS: ALBUMIN 1.2 G/DL (3.4-5.0); ANION GAP 4 (8-16); BLOOD UREA NITROGEN 34 MG/DL (7-18); BUN/CREATININE RATIO 56.7 (6.6-38.0); C-REACTIVE PROTEIN 20.75 MG/DL (0.0-0.5); CALCIUM 8.6 MG/DL (8.5-10.1); CHLORIDE 109 MMOL/L (99-107); GLUCOSE 232 MG/DL (70-104); MAGNESIUM 2.8 MG/DL (1.5-2.4); POTASSIUM 4.9 MMOL/L (3.5-5.1); SODIUM 146 MMOL/L (135-145); TOTAL CARBON DIOXIDE 33.2 MMOL/L (24-32); eGFR > 90 ML/MIN
--- NOTE | 2021-03-25 06:33 | NUR ---
Problems reprioritized. Patient report given, questions answered & plan of care reviewed with Bryan CARR.
[2021-03-25] MEDS: lactobacillus rhamnosus 10,000 MMU CELLS/CAPSULE PO SCH ×2 (08:00→19:42)
[2021-03-25] MEDS: K, MAG and/or Phos replacement - Verify level? MC SCH (08:00)
[2021-03-25] MEDS: lansoprazole 15mg solutab NG SCH (08:00)
[2021-03-25] MEDS: OLANZAPINE 5 MG TABLET PO SCH (08:00)
[2021-03-25] MEDS: docusate sodium 100mg/10ml UD cup OGT SCH ×2 (08:00→19:42)
[2021-03-25] MEDS: enoxaparin 30mg/0.3ml syringe SUBCUT SCH ×2 (08:35→19:41)
[2021-03-25] MEDS: enoxaparin 60mg/0.6ml syringe SUBCUT SCH ×2 (08:35→19:41)
[2021-03-25] MEDS: FENTANYL-0.9 % NACL/PF 100 ML IV PRN ×2 (08:35→20:56)
[2021-03-25] MEDS: ciprofloxacin 250mg tablet PO SCH ×2 (12:33→20:57)
--- NOTE | 2021-03-25 19:18 | NUR ---
pt is intubated with no movement, distress or agitation noted at this time. pt vitals are WNl, repositioned at start of shift. no needs are concerns at this time per pt nuclear instructor, continue of care.
[2021-03-25] MEDS: polyethylene glycol 3350 17gm powd pack OGT SCH (20:56)
[2021-03-25] MEDS: midazolam 100mg in NS 100ml 100 ML IV PRN (20:56)
[2021-03-26] VITALS (27 sets, daily range): BP systolic 95–169; BP diastolic 40–80
[2021-03-26] MEDS: acetaminophen 325mg tablet OGT PRN (00:40)
[2021-03-26] MEDS: diltiazem 30mg tablet PO SCH ×4 (01:08→20:33)
[2021-03-26 03:01] LABS: ABG BASE EXCESS 0.5 mmol/L (-2.0-2.0); ABG HCO3 24.3 mmol/L (22.0-26.0); ABG OXYGEN SATURATION 94.7 % (94-97); ABG PCO2 (T) 36.3 mmHg (32.0-45.0); ABG PO2 (T) 88.4 mmHg (75.0-100.0); ALLEN'S TEST POSITIVE; FCOHb 0.3 % (0.0-3.9); FMetHb 0.1 % (0.0-1.5); FO2Hb 94.3 % (94-97); PEEP 5 cm H2O; RESPIRATORY RATE 18 b/min; TIDAL VOLUME 450 mL; TOTAL HEMOGLOBIN 6.8 G/dl (12.0-16.0)
--- NOTE | 2021-03-26 03:10 | NUR ---
AND DAUGHTER CALLED. GAVE UPDATE ON MOM
[2021-03-26 03:15] LABS: BASOPHILS % (AUTO) 0.1 % (0-1); EOSINOPHILS % (AUTO) 0 % (0-6); LYMPHOCYTES # (AUTO) 0.3 X10'3 (1.1-4.8); LYMPHOCYTES % (AUTO) 3.3 % (21-51); MEAN CORPUSCULAR HEMOGLOBIN 29.4 PG (27.0-31.0); MEAN CORPUSCULAR HGB CONC 32.6 g/dL (33.0-36.5); MEAN CORPUSCULAR VOLUME 90.2 FL (78-98); MEAN PLATELET VOLUME 8.4 FL (7.4-10.4); MONOCYTES # (AUTO) 0.7 X10'3 (0-0.9); MONOCYTES % (AUTO) 6.8 % (2-12); NEUTROPHILS % (AUTO) 89.8 % (42-75); PLATELET COUNT 244 X10'3 (140-440); RED BLOOD COUNT 2.18 X10'6 (4.20-5.60); RED CELL DISTRIBUTION WIDTH 15.5 % (11.5-14.5); WHITE BLOOD COUNT 10.1 X10'3 (4.5-11.0)
[2021-03-26 03:23] LABS: HEMATOCRIT 19.7 % (35.0-45.0); HEMOGLOBIN 6.4 g/dl (12.0-16.0)
[2021-03-26 03:39] LABS: D-DIMER 0.98 MG/L FEU (0-0.50); PARTIAL THROMBOPLASTIN TIME 29 SECONDS (22-32)
[2021-03-26 03:51] LABS: ANION GAP 3 (8-16); BLOOD UREA NITROGEN 36 MG/DL (7-18); BUN/CREATININE RATIO 55.4 (6.6-38.0); C-REACTIVE PROTEIN 12.72 MG/DL (0.0-0.5); CALCIUM 7.7 MG/DL (8.5-10.1); CHLORIDE 113 MMOL/L (99-107); CREATININE 0.65 MG/DL (0.40-0.90); GLUCOSE 243 MG/DL (70-104); MAGNESIUM 2.4 MG/DL (1.5-2.4); POTASSIUM 4.5 MMOL/L (3.5-5.1); SODIUM 146 MMOL/L (135-145); TOTAL CARBON DIOXIDE 30.3 MMOL/L (24-32); eGFR > 90 ML/MIN
--- NOTE | 2021-03-26 03:56 | NUR ---
CALLED DR PROCTOR NO ANSWER X3 FOR LOW HGB, CALLING F
--- NOTE | 2021-03-26 04:13 | NUR ---
SPOKE WITH DR SCHWARZ, REGARDING CV, NEW ORDERS WILL BE PLACED
[2021-03-26 05:45] LABS: ALANINE AMINOTRANSFERASE 93 U/L (12-78); ALBUMIN/GLOBULIN RATIO 0.3 (1.1-1.5); ALKALINE PHOSPHATASE 139 IU/L (46-116); ASPARTATE AMINO TRANSFERASE 34 U/L (10-37); BILIRUBIN,DIRECT 0.1 MG/DL (0-0.3); BILIRUBIN,TOTAL 0.2 MG/DL (0.1-1.0); LACTATE DEHYDROGENASE 239 U/L (81-234)
[2021-03-26] MEDS: K, MAG and/or Phos replacement - Verify level? MC SCH (08:00)
[2021-03-26] MEDS: OLANZAPINE 5 MG TABLET PO SCH (08:05)
[2021-03-26] MEDS: lactobacillus rhamnosus 10,000 MMU CELLS/CAPSULE PO SCH ×2 (08:05→20:33)
[2021-03-26] MEDS: lansoprazole 15mg solutab NG SCH (08:05)
[2021-03-26] MEDS: docusate sodium 100mg/10ml UD cup OGT SCH ×2 (08:05→20:00)
[2021-03-26] MEDS: methylPREDNISolone sod succ 125mg/2ml vial IV SCH ×3 (08:06→23:37)
[2021-03-26] MEDS: cefepime 2g/NS 100ml ADVANTAGE 100 ML IV SCH ×3 (08:06→23:37)
[2021-03-26] MEDS: ciprofloxacin 250mg tablet PO SCH ×2 (09:10→20:59)
[2021-03-26] MEDS: FENTANYL-0.9 % NACL/PF 100 ML IV PRN ×2 (09:11→23:37)
[2021-03-26] MEDS: insulin regular, human U-100 3ml vial - multi-dose SQ SCH ×2 (10:26→14:06)
[2021-03-26] MEDS: midazolam 100mg in NS 100ml 100 ML IV PRN (12:21)
--- NOTE | 2021-03-26 12:44 | NUR ---
0800-Dr uHang phoned floor, hold lovenox due to drop in hemogram, guaiac next stool. 1000- Dr Guevara rounded, increase FW to q 3hours. reported low H&H, bleeding from mouth. cannot assess oral cavity due to bites down. repeat chest xray at 1500, NG to suction for 2 hours to check for duodenal bleeding. 1100- liquid stool, black, sent for guaiac. 1200- Dark blood in suction tubing, reported to . protonix gtt , q 6hr hemogram, transfuse 1 unit for hematocrit <22 and 2 units < 18.
[2021-03-26] MEDS: pantoprazole 40MG/NS 100ML BAG 100 ML IV SCH ×3 (14:05→20:35)
[2021-03-26 14:08] LABS: OCCULT BLOOD STOOL POSITIVE (Neg)
[2021-03-26 14:51] LABS: HEMATOCRIT 22.9 % (35.0-45.0); HEMOGLOBIN 7.7 g/dl (12.0-16.0); MEAN CORPUSCULAR HEMOGLOBIN 29.6 PG (27.0-31.0); MEAN CORPUSCULAR HGB CONC 33.7 g/dL (33.0-36.5); MEAN CORPUSCULAR VOLUME 87.7 FL (78-98); MEAN PLATELET VOLUME 8.1 FL (7.4-10.4); PLATELET COUNT 270 X10'3 (140-440); RED BLOOD COUNT 2.61 X10'6 (4.20-5.60); RED CELL DISTRIBUTION WIDTH 14.8 % (11.5-14.5); WHITE BLOOD COUNT 10.6 X10'3 (4.5-11.0)
--- NOTE | 2021-03-26 18:15 | NUR ---
Problems reprioritized. Patient report given, questions answered & plan of care reviewed with carlyle.
--- NOTE | 2021-03-26 18:29 | NUR ---
Patient in room CICU 2008. I have received report from Jesica CARR and had the opportunity to ask questions and assume patient care.
[2021-03-26] MEDS: polyethylene glycol 3350 17gm powd pack OGT SCH (20:54)
[2021-03-26] MEDS: insulin glargine (Lantus) pen - multi-dose SQ SCH (20:55)
[2021-03-26 21:13] LABS: HEMOGLOBIN 7.2 g/dl (12.0-16.0); MEAN CORPUSCULAR HEMOGLOBIN 29.2 PG (27.0-31.0); MEAN CORPUSCULAR HGB CONC 33.3 g/dL (33.0-36.5); MEAN CORPUSCULAR VOLUME 87.8 FL (78-98); MEAN PLATELET VOLUME 8.1 FL (7.4-10.4); PLATELET COUNT 251 X10'3 (140-440); RED BLOOD COUNT 2.47 X10'6 (4.20-5.60); RED CELL DISTRIBUTION WIDTH 15.5 % (11.5-14.5); WHITE BLOOD COUNT 8.3 X10'3 (4.5-11.0)
[2021-03-26 21:16] LABS: HEMATOCRIT 21.7 % (35.0-45.0)
[2021-03-27] VITALS (25 sets, daily range): BP systolic 92–165; BP diastolic 47–71
[2021-03-27] MEDS: diltiazem 30mg tablet PO SCH ×4 (01:25→20:23)
[2021-03-27] MEDS: pantoprazole 40MG/NS 100ML BAG 100 ML IV SCH ×5 (02:03→21:40)
[2021-03-27 02:53] LABS: ABG BASE EXCESS 5.1 mmol/L (-2.0-2.0); ABG HCO3 28.7 mmol/L (22.0-26.0); ABG OXYGEN SATURATION 93.2 % (94-97); ABG PO2 (T) 69.2 mmHg (75.0-100.0); ALLEN'S TEST POSITIVE; FCOHb 0.3 % (0.0-3.9); FMetHb 0.1 % (0.0-1.5); FO2Hb 92.8 % (94-97); PATIENT TEMPERATURE 37.5; PEEP 5 cm H2O; RESPIRATORY RATE 18 b/min; TIDAL VOLUME 450 mL; TOTAL HEMOGLOBIN 10.1 G/dl (12.0-16.0)
[2021-03-27 03:24] LABS: BASOPHILS % (AUTO) 0 % (0-1); EOSINOPHILS % (AUTO) 0 % (0-6); HEMATOCRIT 29.6 % (35.0-45.0); HEMOGLOBIN 9.7 g/dl (12.0-16.0); LYMPHOCYTES # (AUTO) 0.4 X10'3 (1.1-4.8); LYMPHOCYTES % (AUTO) 3.6 % (21-51); MEAN CORPUSCULAR HEMOGLOBIN 29.2 PG (27.0-31.0); MEAN CORPUSCULAR HGB CONC 32.9 g/dL (33.0-36.5); MEAN CORPUSCULAR VOLUME 88.8 FL (78-98); MEAN PLATELET VOLUME 8.1 FL (7.4-10.4); MONOCYTES # (AUTO) 0.5 X10'3 (0-0.9); MONOCYTES % (AUTO) 4.8 % (2-12); NEUTROPHILS # (AUTO) 10.4 X10'3 (1.8-7.7); NEUTROPHILS % (AUTO) 91.6 % (42-75); PLATELET COUNT 278 X10'3 (140-440); RED BLOOD COUNT 3.33 X10'6 (4.20-5.60); WHITE BLOOD COUNT 11.4 X10'3 (4.5-11.0)
[2021-03-27 03:54] LABS: D-DIMER 1.56 MG/L FEU (0-0.50); PARTIAL THROMBOPLASTIN TIME 24 SECONDS (22-32)
[2021-03-27 04:02] LABS: ALBUMIN 1.3 G/DL (3.4-5.0); ANION GAP 4 (8-16); BLOOD UREA NITROGEN 35 MG/DL (7-18); BUN/CREATININE RATIO 53.8 (6.6-38.0); CALCIUM 8.7 MG/DL (8.5-10.1); CHLORIDE 111 MMOL/L (99-107); CREATININE 0.65 MG/DL (0.40-0.90); GLUCOSE 124 MG/DL (70-104); MAGNESIUM 2.6 MG/DL (1.5-2.4); POTASSIUM 4.6 MMOL/L (3.5-5.1); PREALBUMIN 14.6 MG/DL (19-36); SODIUM 146 MMOL/L (135-145); eGFR > 90 ML/MIN
--- NOTE | 2021-03-27 06:19 | NUR ---
Problems reprioritized. Patient report given, questions answered & plan of care reviewed with Jesica CARR.
[2021-03-27] MEDS: OLANZAPINE 5 MG TABLET PO SCH (07:06)
[2021-03-27] MEDS: ciprofloxacin 250mg tablet PO SCH ×2 (07:06→21:03)
[2021-03-27] MEDS: methylPREDNISolone sod succ 125mg/2ml vial IV SCH (07:06)
[2021-03-27] MEDS: lactobacillus rhamnosus 10,000 MMU CELLS/CAPSULE PO SCH ×2 (07:06→20:24)
[2021-03-27] MEDS: cefepime 2g/NS 100ml ADVANTAGE 100 ML IV SCH ×2 (07:07→15:45)
[2021-03-27] MEDS: docusate sodium 100mg/10ml UD cup OGT SCH ×3 (07:07→20:24)
[2021-03-27] MEDS: midazolam 100mg in NS 100ml 100 ML IV PRN (07:08)
[2021-03-27] MEDS: K, MAG and/or Phos replacement - Verify level? MC SCH (08:00)
[2021-03-27 10:27] LABS: HEMATOCRIT 25.4 % (35.0-45.0); HEMOGLOBIN 8.6 g/dl (12.0-16.0); MEAN CORPUSCULAR HEMOGLOBIN 29.8 PG (27.0-31.0); MEAN CORPUSCULAR HGB CONC 33.7 g/dL (33.0-36.5); MEAN CORPUSCULAR VOLUME 88.2 FL (78-98); PLATELET COUNT 222 X10'3 (140-440); RED BLOOD COUNT 2.88 X10'6 (4.20-5.60); RED CELL DISTRIBUTION WIDTH 14.9 % (11.5-14.5); WHITE BLOOD COUNT 9.1 X10'3 (4.5-11.0)
--- NOTE | 2021-03-27 11:18 | NUR ---
F/u 03/27: Pt TF previously at goal and tolerating now held for UGIB per RN w/ OG to suction -200ml yesterday per EMR. LBM 03/26 moderate w/ routine colace and miralax held this AM per EMR. Will monitor for TF restart and tolerance as medically indicated. Recommendations: 1) Continuous Vital High Protein via OGT with goal rate of 60 mL/hr. To provide 1440 mL total volume/day, 1440 kcal, 126 g protein, and 1204 mL water 2) Additional 200 mL water flush Q4H; monitor serum Na 3) Prealbumin q Saturday/, daily scaled weights 4) bowel care per rx 5) DM education once stable following extubation, A1c 9.8%. Will need new DM diagnosis by physician prior to RD education Addendum: 03/27/21 at [address] Amended: Links added.
[2021-03-27] MEDS: FENTANYL-0.9 % NACL/PF 100 ML IV PRN (11:55)
--- NOTE | 2021-03-27 12:13 | NUR ---
0800- Bp soft, continue to adjust sedation. mouth still has blood in it but less than yesterday, no blood seen in gastric contents. 1200- Dr Christiano sanchez, discussed GI bleed, DYAN bean to resume tube feed. wants O2 sat 88-92%, adjust FIO2 accordingly. Adjusted FiO2 down to 50%, O2 now 92% Addendum: 03/27/21 at 1621 by Jesica Reis RN O2 goal is sat of 88-90%
[2021-03-27] MEDS: insulin regular, human U-100 3ml vial - multi-dose SQ SCH ×2 (13:48→20:35)
[2021-03-27] MEDS: methylPREDNISolone sod succ/PF 40mg inj. IV SCH (15:45)
[2021-03-27 16:17] LABS: HEMATOCRIT 30.3 % (35.0-45.0); MEAN CORPUSCULAR HEMOGLOBIN 29.3 PG (27.0-31.0); MEAN CORPUSCULAR VOLUME 88.9 FL (78-98); MEAN PLATELET VOLUME 8.2 FL (7.4-10.4); PLATELET COUNT 260 X10'3 (140-440); RED BLOOD COUNT 3.41 X10'6 (4.20-5.60); RED CELL DISTRIBUTION WIDTH 15.2 % (11.5-14.5); WHITE BLOOD COUNT 12.3 X10'3 (4.5-11.0)
--- NOTE | 2021-03-27 16:17 | NUR ---
1600- Patient currently on 6mg of versed and 60 of fent. Moving around more overbreathing vent but not bucking it as she was doing previously with less sedation. Noise from chest tube at end expiration, musical in nature. Changed dressing, site free of infection, replaced vaseline gauze, 4x 4's and secured with foam tape, noise still present, can feel it vibrate through tubing, change out atrium and tubing and secured with zip ties, placed to 20cm suction, air leak still present as well as noise.
--- NOTE | 2021-03-27 18:30 | NUR ---
Patient report given, questions answered & plan of care reviewed with Nohemi.
--- NOTE | 2021-03-27 18:34 | NUR ---
Patient in room CICU 2008. I have received report from Jesica CARR and had the opportunity to ask questions and assume patient care.
[2021-03-27] MEDS: insulin glargine (Lantus) pen - multi-dose SQ SCH (20:37)
[2021-03-27] MEDS: polyethylene glycol 3350 17gm powd pack OGT SCH (20:44)
[2021-03-27 22:41] LABS: HEMATOCRIT 28.5 % (35.0-45.0); HEMOGLOBIN 9.3 g/dl (12.0-16.0); MEAN CORPUSCULAR HEMOGLOBIN 29.2 PG (27.0-31.0); MEAN CORPUSCULAR HGB CONC 32.6 g/dL (33.0-36.5); MEAN CORPUSCULAR VOLUME 89.7 FL (78-98); MEAN PLATELET VOLUME 8.2 FL (7.4-10.4); PLATELET COUNT 225 X10'3 (140-440); RED BLOOD COUNT 3.18 X10'6 (4.20-5.60); RED CELL DISTRIBUTION WIDTH 15.4 % (11.5-14.5)
[2021-03-27 22:56] LABS: TRIGLYCERIDES 86 MG/DL (20-135)
[2021-03-28] VITALS (24 sets, daily range): BP systolic 103–162; BP diastolic 6–77
[2021-03-28] MEDS: cefepime 2g/NS 100ml ADVANTAGE 100 ML IV SCH ×4 (00:13→23:43)
[2021-03-28] MEDS: methylPREDNISolone sod succ/PF 40mg inj. IV SCH ×4 (00:13→23:43)
[2021-03-28] MEDS: diltiazem 30mg tablet PO SCH ×4 (02:19→20:21)
[2021-03-28] MEDS: pantoprazole 40MG/NS 100ML BAG 100 ML IV SCH ×6 (02:19→23:29)
[2021-03-28] MEDS: insulin regular, human U-100 3ml vial - multi-dose SQ SCH ×4 (02:29→20:35)
[2021-03-28] MEDS: acetaminophen 325mg tablet OGT PRN ×2 (03:25→14:42)
[2021-03-28] MEDS: midazolam 100mg in NS 100ml 100 ML IV PRN ×2 (03:44→17:34)
[2021-03-28 03:50] LABS: HEMATOCRIT 28.3 % (35.0-45.0); HEMOGLOBIN 9.4 g/dl (12.0-16.0); MEAN CORPUSCULAR HEMOGLOBIN 29.3 PG (27.0-31.0); MEAN CORPUSCULAR HGB CONC 33.3 g/dL (33.0-36.5); MEAN CORPUSCULAR VOLUME 87.9 FL (78-98); MEAN PLATELET VOLUME 7.9 FL (7.4-10.4); PLATELET COUNT 229 X10'3 (140-440); RED BLOOD COUNT 3.22 X10'6 (4.20-5.60); RED CELL DISTRIBUTION WIDTH 14.8 % (11.5-14.5); WHITE BLOOD COUNT 11.4 X10'3 (4.5-11.0)
[2021-03-28 04:08] LABS: C-REACTIVE PROTEIN 26.13 MG/DL (0.0-0.5)
[2021-03-28 04:08] LABS: ABG BASE EXCESS 4.7 mmol/L (-2.0-2.0); ABG HCO3 28.7 mmol/L (22.0-26.0); ABG OXYGEN SATURATION 94.3 % (94-97); ABG PCO2 (T) 42.5 mmHg (32.0-45.0); ABG PO2 (T) 81.3 mmHg (75.0-100.0); ALLEN'S TEST Modified; FCOHb 0.3 % (0.0-3.9); FMetHb 0.3 % (0.0-1.5); FO2Hb 93.7 % (94-97); PATIENT TEMPERATURE 38.4; PEEP 5 cm H2O; RESPIRATORY RATE 18 b/min; TIDAL VOLUME 450 mL; TOTAL HEMOGLOBIN 10.2 G/dl (12.0-16.0)
[2021-03-28 04:38] LABS: ALBUMIN 1.1 G/DL (3.4-5.0); ANION GAP 5 (8-16); BLOOD UREA NITROGEN 31 MG/DL (7-18); BUN/CREATININE RATIO 46.3 (6.6-38.0); CALCIUM 8.6 MG/DL (8.5-10.1); CHLORIDE 109 MMOL/L (99-107); CREATININE 0.67 MG/DL (0.40-0.90); GLUCOSE 163 MG/DL (70-104); MAGNESIUM 2.4 MG/DL (1.5-2.4); PHOSPHORUS 2.6 MG/DL (2.3-4.5); POTASSIUM 4.2 MMOL/L (3.5-5.1); SODIUM 143 MMOL/L (135-145); TOTAL CARBON DIOXIDE 29.2 MMOL/L (24-32); eGFR 88 ML/MIN
[2021-03-28] MEDS: FENTANYL-0.9 % NACL/PF 100 ML IV PRN ×2 (05:55→19:29)
--- NOTE | 2021-03-28 06:23 | NUR ---
Problems reprioritized. Patient report given, questions answered & plan of care reviewed with Josette CARR.
--- NOTE | 2021-03-28 06:33 | NUR ---
Patient in room [facility] 2008. I have received report from Nohemi CARR and had the opportunity to ask questions and assume patient care. Addendum: 03/28/21 at 0634 by Josette Ngo RN Amended: Links added.
[2021-03-28] MEDS: K, MAG and/or Phos replacement - Verify level? MC SCH (08:00)
[2021-03-28] MEDS: OLANZAPINE 5 MG TABLET PO SCH (08:09)
[2021-03-28] MEDS: lactobacillus rhamnosus 10,000 MMU CELLS/CAPSULE PO SCH ×2 (08:09→20:21)
[2021-03-28] MEDS: docusate sodium 100mg/10ml UD cup OGT SCH ×2 (08:09→20:21)
[2021-03-28 09:07] LABS: HEMATOCRIT 25.1 % (35.0-45.0); HEMOGLOBIN 8.3 g/dl (12.0-16.0); MEAN CORPUSCULAR HEMOGLOBIN 29.7 PG (27.0-31.0); MEAN CORPUSCULAR HGB CONC 33.2 g/dL (33.0-36.5); MEAN CORPUSCULAR VOLUME 89.4 FL (78-98); MEAN PLATELET VOLUME 7.9 FL (7.4-10.4); PLATELET COUNT 182 X10'3 (140-440); RED BLOOD COUNT 2.81 X10'6 (4.20-5.60); RED CELL DISTRIBUTION WIDTH 15.1 % (11.5-14.5); WHITE BLOOD COUNT 9.5 X10'3 (4.5-11.0)
[2021-03-28] MEDS: ciprofloxacin 250mg tablet PO SCH ×2 (10:07→20:42)
[2021-03-28] MEDS: mineral oil/petrolatum ophthal oint EACHEYE SCH ×3 (12:20→20:30)
--- NOTE | 2021-03-28 14:55 | NUR ---
Updated pt's 4 times via phone today. Medicated with Tylenol for fever.
--- NOTE | 2021-03-28 15:29 | NUR ---
Sputum specimen obtained for culture. Awaiting phleb to come draw BC X 2 since line is too old to obtain cultures.
[2021-03-28 15:54] LABS: HEMATOCRIT 24.7 % (35.0-45.0); HEMOGLOBIN 8.2 g/dl (12.0-16.0); MEAN CORPUSCULAR HEMOGLOBIN 29.4 PG (27.0-31.0); MEAN CORPUSCULAR HGB CONC 33.3 g/dL (33.0-36.5); MEAN CORPUSCULAR VOLUME 88.2 FL (78-98); MEAN PLATELET VOLUME 7.7 FL (7.4-10.4); PLATELET COUNT 162 X10'3 (140-440); RED CELL DISTRIBUTION WIDTH 15.2 % (11.5-14.5); WHITE BLOOD COUNT 8.9 X10'3 (4.5-11.0)
--- NOTE | 2021-03-28 18:09 | NUR ---
Problems reprioritized. Patient report given, questions answered & plan of care reviewed with NOC RN.
[2021-03-28] MEDS: insulin glargine (Lantus) pen - multi-dose SQ SCH (20:35)
[2021-03-28] MEDS: polyethylene glycol 3350 17gm powd pack OGT SCH (20:36)
[2021-03-29] VITALS (25 sets, daily range): BP systolic 87–144; BP diastolic 42–77
[2021-03-29] MEDS: pantoprazole 40MG/NS 100ML BAG 100 ML IV SCH ×3 (01:00→09:06)
[2021-03-29 01:01] LABS: HEMATOCRIT 26.1 % (35.0-45.0); HEMOGLOBIN 8.5 g/dl (12.0-16.0); MEAN CORPUSCULAR HGB CONC 32.3 g/dL (33.0-36.5); MEAN CORPUSCULAR VOLUME 89.6 FL (78-98); PLATELET COUNT 164 X10'3 (140-440); RED BLOOD COUNT 2.92 X10'6 (4.20-5.60); WHITE BLOOD COUNT 9.1 X10'3 (4.5-11.0)
[2021-03-29 01:02] LABS: MEAN PLATELET VOLUME 8.2 FL (7.4-10.4)
[2021-03-29] MEDS: acetaminophen 325mg tablet OGT PRN ×5 (01:22→20:09)
[2021-03-29] MEDS: diltiazem 30mg tablet PO SCH ×4 (02:28→20:00)
[2021-03-29] MEDS: mineral oil/petrolatum ophthal oint EACHEYE SCH ×4 (02:28→20:44)
[2021-03-29] MEDS: insulin regular, human U-100 3ml vial - multi-dose SQ SCH ×4 (02:36→21:11)
[2021-03-29 03:30] LABS: BASOPHILS % (AUTO) 0 % (0-1); EOSINOPHILS % (AUTO) 0 % (0-6); HEMATOCRIT 25.8 % (35.0-45.0); HEMOGLOBIN 8.4 g/dl (12.0-16.0); LYMPHOCYTES # (AUTO) 0.4 X10'3 (1.1-4.8); LYMPHOCYTES % (AUTO) 4.2 % (21-51); MEAN CORPUSCULAR HEMOGLOBIN 29.3 PG (27.0-31.0); MEAN CORPUSCULAR HGB CONC 32.6 g/dL (33.0-36.5); MEAN CORPUSCULAR VOLUME 89.9 FL (78-98); MEAN PLATELET VOLUME 8.1 FL (7.4-10.4); MONOCYTES # (AUTO) 0.2 X10'3 (0-0.9); NEUTROPHILS # (AUTO) 7.9 X10'3 (1.8-7.7); NEUTROPHILS % (AUTO) 93.8 % (42-75); PLATELET COUNT 146 X10'3 (140-440); RED BLOOD COUNT 2.87 X10'6 (4.20-5.60); RED CELL DISTRIBUTION WIDTH 15.1 % (11.5-14.5); WHITE BLOOD COUNT 8.5 X10'3 (4.5-11.0)
[2021-03-29 03:45] LABS: ALANINE AMINOTRANSFERASE 74 U/L (12-78); ALBUMIN 0.9 G/DL (3.4-5.0); ALBUMIN/GLOBULIN RATIO 0.2 (1.1-1.5); ALKALINE PHOSPHATASE 138 IU/L (46-116); ANION GAP 3 (8-16); ASPARTATE AMINO TRANSFERASE 61 U/L (10-37); BILIRUBIN,TOTAL 0.5 MG/DL (0.1-1.0); BLOOD UREA NITROGEN 29 MG/DL (7-18); BUN/CREATININE RATIO 47.5 (6.6-38.0); CALCIUM 8.3 MG/DL (8.5-10.1); CHLORIDE 111 MMOL/L (99-107); CREATININE 0.61 MG/DL (0.40-0.90); D-DIMER 3.82 MG/L FEU (0-0.50); GLUCOSE 135 MG/DL (70-104); MAGNESIUM 2.3 MG/DL (1.5-2.4); PHOSPHORUS 2.6 MG/DL (2.3-4.5); POTASSIUM 4.2 MMOL/L (3.5-5.1); SODIUM 144 MMOL/L (135-145); TOTAL CARBON DIOXIDE 29.7 MMOL/L (24-32); TOTAL PROTEIN 5.3 G/DL (6.4-8.2); eGFR > 90 ML/MIN
[2021-03-29 03:48] LABS: C-REACTIVE PROTEIN 25.51 MG/DL (0.0-0.5)
[2021-03-29 04:11] LABS: ABG BASE EXCESS -0.2 mmol/L (-2.0-2.0); ABG HCO3 23.6 mmol/L (22.0-26.0); ABG OXYGEN SATURATION 92.3 % (94-97); ABG PCO2 (T) 36.1 mmHg (32.0-45.0); ABG PO2 (T) 70.3 mmHg (75.0-100.0); ALLEN'S TEST POSITIVE; FCOHb 0.3 % (0.0-3.9); FMetHb 0.2 % (0.0-1.5); FO2Hb 91.8 % (94-97); PATIENT TEMPERATURE 37.7; PEEP 5 cm H2O; RESPIRATORY RATE 18 b/min; TIDAL VOLUME 450 mL; TOTAL HEMOGLOBIN 8.7 G/dl (12.0-16.0)
--- NOTE | 2021-03-29 06:38 | NUR ---
Problems reprioritized. Patient report given, questions answered & plan of care reviewed with Barbra CARR.
[2021-03-29] MEDS: K, MAG and/or Phos replacement - Verify level? MC SCH (08:00)
[2021-03-29] MEDS: lactobacillus rhamnosus 10,000 MMU CELLS/CAPSULE PO SCH ×2 (08:59→20:43)
[2021-03-29] MEDS: OLANZAPINE 5 MG TABLET PO SCH (09:00)
[2021-03-29] MEDS: methylPREDNISolone sod succ/PF 40mg inj. IV SCH ×3 (09:01→23:30)
[2021-03-29] MEDS: docusate sodium 100mg/10ml UD cup OGT SCH ×2 (09:01→20:00)
[2021-03-29] MEDS: midazolam 100mg in NS 100ml 100 ML IV PRN (09:03)
[2021-03-29] MEDS: FENTANYL-0.9 % NACL/PF 100 ML IV PRN ×3 (09:05→14:47)
[2021-03-29] MEDS: cefepime 2g/NS 100ml ADVANTAGE 100 ML IV SCH ×3 (09:08→23:30)
[2021-03-29] MEDS: ciprofloxacin 250mg tablet PO SCH ×2 (10:55→23:30)
[2021-03-29] MEDS: pantoprazole 40 MG vial IV SCH (20:43)
[2021-03-29] MEDS: polyethylene glycol 3350 17gm powd pack OGT SCH (20:45)
[2021-03-29] MEDS: insulin glargine (Lantus) pen - multi-dose SQ SCH (21:10)
[2021-03-30] VITALS (23 sets, daily range): BP systolic 90–148; BP diastolic 38–74
[2021-03-30] MEDS: diltiazem 30mg tablet PO SCH ×4 (01:39→20:22)
[2021-03-30] MEDS: mineral oil/petrolatum ophthal oint EACHEYE SCH ×4 (01:39→20:23)
[2021-03-30] MEDS: FENTANYL-0.9 % NACL/PF 100 ML IV PRN (01:40)
[2021-03-30] MEDS: midazolam 100mg in NS 100ml 100 ML IV PRN ×3 (01:48→23:29)
[2021-03-30] MEDS: insulin regular, human U-100 3ml vial - multi-dose SQ SCH ×4 (02:10→20:41)
[2021-03-30 02:48] LABS: BASOPHILS % (AUTO) 0.1 % (0-1); EOSINOPHILS % (AUTO) 0 % (0-6); HEMATOCRIT 27.3 % (35.0-45.0); HEMOGLOBIN 8.9 g/dl (12.0-16.0); LYMPHOCYTES # (AUTO) 0.3 X10'3 (1.1-4.8); LYMPHOCYTES % (AUTO) 4.5 % (21-51); MEAN CORPUSCULAR HEMOGLOBIN 29.5 PG (27.0-31.0); MEAN CORPUSCULAR HGB CONC 32.6 g/dL (33.0-36.5); MEAN CORPUSCULAR VOLUME 90.4 FL (78-98); MEAN PLATELET VOLUME 8.5 FL (7.4-10.4); MONOCYTES # (AUTO) 0.2 X10'3 (0-0.9); NEUTROPHILS # (AUTO) 5.9 X10'3 (1.8-7.7); NEUTROPHILS % (AUTO) 92.4 % (42-75); PLATELET COUNT 110 X10'3 (140-440); RED BLOOD COUNT 3.02 X10'6 (4.20-5.60); RED CELL DISTRIBUTION WIDTH 15.6 % (11.5-14.5); WHITE BLOOD COUNT 6.4 X10'3 (4.5-11.0)
[2021-03-30 03:07] LABS: ALANINE AMINOTRANSFERASE 99 U/L (12-78); ALBUMIN 0.8 G/DL (3.4-5.0); ALBUMIN/GLOBULIN RATIO 0.2 (1.1-1.5); ALKALINE PHOSPHATASE 174 IU/L (46-116); ANION GAP 0 (8-16); ASPARTATE AMINO TRANSFERASE 81 U/L (10-37); BILIRUBIN,TOTAL 0.5 MG/DL (0.1-1.0); BLOOD UREA NITROGEN 27 MG/DL (7-18); BUN/CREATININE RATIO 44.3 (6.6-38.0); CALCIUM 8.6 MG/DL (8.5-10.1); CHLORIDE 109 MMOL/L (99-107); CREATININE 0.61 MG/DL (0.40-0.90); GLUCOSE 123 MG/DL (70-104); MAGNESIUM 2.2 MG/DL (1.5-2.4); PHOSPHORUS 2.5 MG/DL (2.3-4.5); POTASSIUM 4.3 MMOL/L (3.5-5.1); SODIUM 137 MMOL/L (135-145); TOTAL PROTEIN 5.5 G/DL (6.4-8.2); eGFR > 90 ML/MIN
[2021-03-30 03:10] LABS: ABG BASE EXCESS -2.5 mmol/L (-2.0-2.0); ABG OXYGEN SATURATION 90.6 % (94-97); ABG PCO2 (T) 32.4 mmHg (32.0-45.0); ABG PO2 (T) 61.3 mmHg (75.0-100.0); ALLEN'S TEST POSITIVE; FCOHb 0.1 % (0.0-3.9); FO2Hb 90.5 % (94-97); PATIENT TEMPERATURE 37.5; PEEP 5 cm H2O; RESPIRATORY RATE 18 b/min; TIDAL VOLUME 450 mL
[2021-03-30] MEDS: acetaminophen 325mg tablet OGT PRN ×2 (04:42→08:41)
[2021-03-30] MEDS: K, MAG and/or Phos replacement - Verify level? MC SCH (08:00)
[2021-03-30] MEDS: methylPREDNISolone sod succ/PF 40mg inj. IV SCH ×2 (08:40→16:01)
[2021-03-30] MEDS: OLANZAPINE 5 MG TABLET PO SCH (08:41)
[2021-03-30] MEDS: pantoprazole 40 MG vial IV SCH ×2 (08:41→20:22)
[2021-03-30] MEDS: lactobacillus rhamnosus 10,000 MMU CELLS/CAPSULE PO SCH ×2 (08:41→20:22)
[2021-03-30] MEDS: docusate sodium 100mg/10ml UD cup OGT SCH ×2 (08:42→20:00)
[2021-03-30] MEDS: cefepime 2g/NS 100ml ADVANTAGE 100 ML IV SCH ×2 (08:42→16:02)
[2021-03-30] MEDS: ciprofloxacin 250mg tablet PO SCH (09:44)
--- NOTE | 2021-03-30 11:19 | NUR ---
Reassessment: Pt remains intubated and tolerating TF at goal rate with GRV WNL. Pt currently receiving Vital AF as a substitute for Vital High Protein d/t formula shortage at this time. LBM 03/28 with 200 mL stool output from rectal tube per I&O. Routine bowel care available however held 03/29 d/t pt with diarrhea per EMR. No changes to nutrition recommendations at this time. Will continue to follow closely. Recommendations: 1) Continuous Vital High Protein via OGT with goal rate of 60 mL/hr. To provide 1440 mL total volume/day, 1440 kcal, 126 g protein, and 1204 mL water 2) Additional 200 mL water flush Q4H; monitor serum Na 3) Prealbumin q Saturday/, daily scaled weights 4) Routine bowel care 5) DM education once stable following extubation, A1c 9.8%. Will need new DM diagnosis by physician prior to RD education Addendum: 03/30/21 at [address] Amended: Links added.
[2021-03-30] MEDS: dexmedetomidin/NS 400mcg/100ml 100 ML IV SCH ×2 (15:45→23:29)
[2021-03-30 19:12] LABS: ABG OXYGEN SATURATION 89.6 % (94-97); ABG PCO2 (T) 44.5 mmHg (32.0-45.0); ABG PO2 (T) 60.1 mmHg (75.0-100.0); ALLEN'S TEST POSITIVE; FCOHb 0.2 % (0.0-3.9); FMetHb 0.1 % (0.0-1.5); FO2Hb 89.3 % (94-97); PATIENT TEMPERATURE 37.1; PEEP 5 cm H2O; RESPIRATORY RATE 18 b/min; TIDAL VOLUME 450 mL; TOTAL HEMOGLOBIN 8.5 G/dl (12.0-16.0)
[2021-03-30] MEDS ORDERED: NORepinephrine 8mg/ 250ml NS 250 ML IV ONE (19:20)
[2021-03-30] MEDS: NORepinephrine 8mg/ 250ml NS 250 ML IV SCH (19:28)
[2021-03-30] MEDS: enoxaparin 60mg/0.6ml syringe SUBCUT SCH (20:24)
[2021-03-30] MEDS: polyethylene glycol 3350 17gm powd pack OGT SCH (20:27)
[2021-03-30] MEDS: insulin glargine (Lantus) pen - multi-dose SQ SCH (20:43)
[2021-03-31] VITALS (24 sets, daily range): BP systolic 95–154; BP diastolic 42–66
[2021-03-31] MEDS: ciprofloxacin 250mg tablet PO SCH ×3 (00:20→22:00)
[2021-03-31] MEDS: cefepime 2g/NS 100ml ADVANTAGE 100 ML IV SCH ×3 (00:20→16:06)
[2021-03-31] MEDS: methylPREDNISolone sod succ/PF 40mg inj. IV SCH ×3 (00:20→16:06)
[2021-03-31] MEDS: mineral oil/petrolatum ophthal oint EACHEYE SCH ×4 (02:00→20:53)
[2021-03-31 02:52] LABS: ABG BASE EXCESS 3.5 mmol/L (-2.0-2.0); ABG HCO3 29.1 mmol/L (22.0-26.0); ABG OXYGEN SATURATION 91.7 % (94-97); ABG PCO2 (T) 50.1 mmHg (32.0-45.0); ABG PO2 (T) 64.4 mmHg (75.0-100.0); ALLEN'S TEST POSITIVE; FCOHb 0.2 % (0.0-3.9); FMetHb 0.2 % (0.0-1.5); FO2Hb 91.3 % (94-97); PATIENT TEMPERATURE 37.5; PEEP 5 cm H2O; RESPIRATORY RATE 18 b/min; TIDAL VOLUME 450 mL
[2021-03-31 03:23] LABS: BASOPHILS % (AUTO) 0.1 % (0-1); EOSINOPHILS % (AUTO) 0 % (0-6); HEMATOCRIT 26.6 % (35.0-45.0); HEMOGLOBIN 8.7 g/dl (12.0-16.0); LYMPHOCYTES # (AUTO) 0.3 X10'3 (1.1-4.8); LYMPHOCYTES % (AUTO) 5.6 % (21-51); MEAN CORPUSCULAR HEMOGLOBIN 29.6 PG (27.0-31.0); MEAN CORPUSCULAR HGB CONC 32.7 g/dL (33.0-36.5); MEAN CORPUSCULAR VOLUME 90.5 FL (78-98); MONOCYTES # (AUTO) 0.2 X10'3 (0-0.9); MONOCYTES % (AUTO) 3.7 % (2-12); NEUTROPHILS # (AUTO) 4.5 X10'3 (1.8-7.7); NEUTROPHILS % (AUTO) 90.6 % (42-75); RED BLOOD COUNT 2.94 X10'6 (4.20-5.60); RED CELL DISTRIBUTION WIDTH 15.3 % (11.5-14.5)
[2021-03-31 03:27] LABS: PLATELET COUNT 97 X10'3 (140-440)
[2021-03-31] MEDS: diltiazem 30mg tablet PO SCH ×4 (03:36→20:51)
[2021-03-31 03:49] LABS: ALANINE AMINOTRANSFERASE 82 U/L (12-78); ALBUMIN 0.7 G/DL (3.4-5.0); ALBUMIN/GLOBULIN RATIO 0.1 (1.1-1.5); ALKALINE PHOSPHATASE 161 IU/L (46-116); ANION GAP 3 (8-16); ASPARTATE AMINO TRANSFERASE 70 U/L (10-37); BILIRUBIN,TOTAL 0.5 MG/DL (0.1-1.0); BLOOD UREA NITROGEN 32 MG/DL (7-18); BUN/CREATININE RATIO 45.7 (6.6-38.0); CALCIUM 9.1 MG/DL (8.5-10.1); CHLORIDE 112 MMOL/L (99-107); GLUCOSE 106 MG/DL (70-104); MAGNESIUM 2.3 MG/DL (1.5-2.4); PHOSPHORUS 3.1 MG/DL (2.3-4.5); POTASSIUM 4.4 MMOL/L (3.5-5.1); SODIUM 143 MMOL/L (135-145); TOTAL CARBON DIOXIDE 28.2 MMOL/L (24-32); TOTAL PROTEIN 5.5 G/DL (6.4-8.2); eGFR 84 ML/MIN
[2021-03-31] MEDS: insulin regular, human U-100 3ml vial - multi-dose SQ SCH (03:55)
[2021-03-31] MEDS: dexmedetomidin/NS 400mcg/100ml 100 ML IV SCH ×3 (05:51→20:55)
[2021-03-31] MEDS: NORepinephrine 8mg/ 250ml NS 250 ML IV SCH ×2 (07:38→22:34)
[2021-03-31] MEDS ORDERED: sod chloride 0.9% 10ml flush syringe IV ONE (08:00)
[2021-03-31] MEDS: K, MAG and/or Phos replacement - Verify level? MC SCH (08:00)
[2021-03-31] MEDS ORDERED: rocuronium 10mg/ml inj IV ONE ×3 (08:00→21:40)
[2021-03-31] MEDS: midazolam 100mg in NS 100ml 100 ML IV PRN ×3 (08:54→22:37)
[2021-03-31] MEDS: pantoprazole 40 MG vial IV SCH ×2 (08:55→20:51)
[2021-03-31] MEDS: docusate sodium 100mg/10ml UD cup OGT SCH ×2 (08:56→20:00)
[2021-03-31] MEDS: enoxaparin 60mg/0.6ml syringe SUBCUT SCH ×2 (08:56→20:53)
[2021-03-31] MEDS: lactobacillus rhamnosus 10,000 MMU CELLS/CAPSULE PO SCH ×2 (08:57→20:51)
[2021-03-31] MEDS: acetaminophen 325mg tablet OGT PRN (08:57)
[2021-03-31] MEDS: OLANZAPINE 5 MG TABLET PO SCH (08:58)
--- NOTE | 2021-03-31 11:40 | NUR ---
Nutrition consult re: Decrease free water flush. Pt currently receiving 200 mL water flush Q4H, serum Na WNL. Throughout most of LOS serum Na has been elevated or WNL, d/w at critical care rounds. MD hernandez continuing with 200 mL water flush Q4H. Will continue to follow and monitor serum Na. Addendum: 03/31/21 at [address] Amended: Links added.
[2021-03-31] MEDS ORDERED: micafungin inj 100 MG in normal saline 100ml IV soln 100 ML IV SCH (15:00)
[2021-03-31] MEDS ORDERED: iohexol 300mg/ml 100ml inj. ONE (15:57)
[2021-03-31 16:08] LABS: D-DIMER 3.99 MG/L FEU (0-0.50)
--- NOTE | 2021-03-31 20:15 | NUR ---
Pt family updated x3 , pt FiO2 increased due to decline in pulse ox levels and worsening ABGs - Chest CT obtained ; pt transported to CT with transport x2, RN and RT ; Left unit at 1610 and returned at 1645 - Pt family spoke to MD hartley about treatment plan. Telephone consent obtained for additional chest tube placement. - R. Chest tube placed approx 1730, uneventful. Pt in stable condition.
[2021-03-31] MEDS: insulin glargine (Lantus) pen - multi-dose SQ SCH (21:00)
[2021-03-31] MEDS: polyethylene glycol 3350 17gm powd pack OGT SCH (21:00)
[2021-03-31] MEDS ORDERED: vasopressin inj. 40 UNIT in normal saline 50ml IV soln 38 ML IV SCH (21:35)
[2021-03-31] MEDS ORDERED: propofol 1000mg/100ml bottle 100 ML IV ONE (21:35)
[2021-03-31] MEDS: propofol 1000mg/100ml bottle 100 ML IV SCH (21:40)
[2021-03-31] MEDS ORDERED: CISatracurium besylate inj. 100 MG in normal saline 100ml IV soln 90 ML IV SCH (22:15)
[2021-03-31 22:26] LABS: ABG BASE EXCESS -3.8 mmol/L (-2.0-2.0); ABG HCO3 24.2 mmol/L (22.0-26.0); ABG OXYGEN SATURATION 79.9 % (94-97); ABG PCO2 (T) 61.8 mmHg (32.0-45.0); ABG PO2 (T) 53.9 mmHg (75.0-100.0); ALLEN'S TEST POSITIVE; FCOHb 0.3 % (0.0-3.9); FMetHb 0.3 % (0.0-1.5); FO2Hb 79.4 % (94-97); PATIENT TEMPERATURE 37.9; PEEP 12 cm H2O; RESPIRATORY RATE 18 b/min; TIDAL VOLUME 400 mL; TOTAL HEMOGLOBIN 9.8 G/dl (12.0-16.0)
--- NOTE | 2021-03-31 23:28 | NUR ---
at bedside, spoke to him about pts condition, awaiting other family members to arrive
[2021-04-01] VITALS: BP 95/36
[2021-04-01] MEDS: methylPREDNISolone sod succ/PF 40mg inj. IV SCH
[2021-04-01] MEDS: cefepime 2g/NS 100ml ADVANTAGE 100 ML IV SCH
[2021-04-01 01:00] VITALS: BP 91/37
[2021-04-01] MEDS: propofol 1000mg/100ml bottle 100 ML IV SCH (01:09)
[2021-04-01] MEDS: acetaminophen 325mg tablet OGT PRN (01:11)
[2021-04-01] MEDS: NORepinephrine 8mg/ 250ml NS 250 ML IV SCH ×2 (01:26→03:49)
[2021-04-01 02:00] VITALS: BP 86/32
[2021-04-01] MEDS: mineral oil/petrolatum ophthal oint EACHEYE SCH (02:00)
[2021-04-01 03:00] VITALS: BP 81/41
[2021-04-01 03:29] LABS: BASOPHILS % (AUTO) 0.2 % (0-1); LYMPHOCYTES # (AUTO) 0.9 X10'3 (1.1-4.8); MONOCYTES # (AUTO) 0.2 X10'3 (0-0.9); MONOCYTES % (AUTO) 1.8 % (2-12); NEUTROPHILS % (AUTO) 90.1 % (42-75); PLATELET COUNT 110 X10'3 (140-440)
[2021-04-01] MEDS: midazolam 100mg in NS 100ml 100 ML IV PRN (03:31)
[2021-04-01 03:32] LABS: EOSINOPHILS % (AUTO) 0 % (0-6); LYMPHOCYTES % (AUTO) 7.9 % (21-51); NEUTROPHILS # (AUTO) 10.4 X10'3 (1.8-7.7); WHITE BLOOD COUNT 11.6 X10'3 (4.5-11.0)
[2021-04-01 04:00] VITALS: BP 74/39
[2021-04-01 04:10] LABS: ALKALINE PHOSPHATASE 278 IU/L (46-116); ANION GAP 14 (8-16); BILIRUBIN,TOTAL 0.7 MG/DL (0.1-1.0); BLOOD UREA NITROGEN 41 MG/DL (7-18); BUN/CREATININE RATIO 32.5 (6.6-38.0); CALCIUM 8.7 MG/DL (8.5-10.1); CHLORIDE 108 MMOL/L (99-107); CREATININE 1.26 MG/DL (0.40-0.90); MAGNESIUM 2.9 MG/DL (1.5-2.4); PHOSPHORUS 8.1 MG/DL (2.3-4.5); SODIUM 140 MMOL/L (135-145); TOTAL CARBON DIOXIDE 18.1 MMOL/L (24-32); TOTAL PROTEIN 5.4 G/DL (6.4-8.2); eGFR 43 ML/MIN
[2021-04-01 04:29] LABS: HEMATOCRIT 24.9 % (35.0-45.0); HEMOGLOBIN 8.3 g/dl (12.0-16.0); MEAN CORPUSCULAR HEMOGLOBIN 30.4 PG (27.0-31.0); MEAN CORPUSCULAR HGB CONC 33.4 g/dL (33.0-36.5); RED BLOOD COUNT 2.74 X10'6 (4.20-5.60); RED CELL DISTRIBUTION WIDTH 15.2 % (11.5-14.5)
[2021-04-01 04:34] LABS: ABG BASE EXCESS -18.7 mmol/L (-2.0-2.0); ABG HCO3 14.4 mmol/L (22.0-26.0); ABG OXYGEN SATURATION 69.7 % (94-97); ABG PCO2 (T) 82.2 mmHg (32.0-45.0); ABG PO2 (T) 56.3 mmHg (75.0-100.0); ALLEN'S TEST POSITIVE; FCOHb 0.3 % (0.0-3.9); FMetHb 0.1 % (0.0-1.5); FO2Hb 69.4 % (94-97); PATIENT TEMPERATURE 37.8; PEEP 12 cm H2O; TIDAL VOLUME 400 mL; TOTAL HEMOGLOBIN 9.5 G/dl (12.0-16.0)
[2021-04-01 04:41] LABS: ASPARTATE AMINO TRANSFERASE 2057 U/L (10-37)
[2021-04-01 04:49] LABS: ALBUMIN 0.6 G/DL (3.4-5.0); ALBUMIN/GLOBULIN RATIO 0.1 (1.1-1.5); GLUCOSE 160 MG/DL (70-104)
[2021-04-01 04:50] LABS: ALANINE AMINOTRANSFERASE 1309 U/L (12-78)
[2021-04-01 04:54] LABS: POTASSIUM 6.7 MMOL/L (3.5-5.1)
[2021-04-01 05:00] VITALS: BP 68/39
--- NOTE | 2021-04-01 05:41 | NUR ---
RN IS TO DOCUMENT YES TO ALL APPLICABLE AREAS Pronouncement of : 04/01/2021 at 0512 1. Time Physician Notified: 04/01/2021 at 0513 - Dr Dowling 2. Date of : 04/01/2021 3. Time of : 05 4. DNR/Withdraw life support documented: Yes DNR 5. Monitor strip has been placed on chart: Yes 6. Assessment process is of one-minute duration and includes following criteria: a) Patient is unresponsive to all stimuli: Yes b) Pupils fixed and non-reactive: Yes c) Auscultation of precordium reveals absence of heart tones: Yes d) Auscultation of lungs reveals absence of breath sounds: Yes e) Absence of blood pressure / all vital signs: Yes f) QRS complexes are not present on monitor / EKG strip: Yes g) Pacer spikes without capture: N/A 4. Comments: Pts heart rate started to drop and went into asystole at 0512 on 04/01/2021. Was on phone with Dr Dowling at the time, and notified him right away. Family notified. Family did get to come in earlier in the night to say their goodbyes and left around 0100. Dr Dowling allowed for 2 nurse pronounce. LILLY Arias and LILLY Rivera confirmed .
[2021-04-01 06:37] LABS: ANISOCYTOSIS 1+; PLATELET ESTIMATE DECREASED; TOTAL CELLS COUNTED 100
[2021-04-01 06:38] LABS: POIKILOCYTOSIS FEW
--- NOTE | 2021-04-01 09:04 | NUR ---
0600 report received, [facility] called at 0650, pt was released from them due to covid at 0710. Attempted to call at 830 no answer. Called daughter Dayna. They had not decided on which home but she wants it to be in [place], [place]. She will call with specifics
--- NOTE | 2021-04-01 19:59 | NUR ---
pt wedding ring found in room when cleaning; Tyler, family member notified; requesting ring to be taken to safe; admitting notified and ring taken to be placed in safe for family to retrieve at another time.
[2021-04-03 06:18] LABS: ABG BASE EXCESS -4.7 mmol/L (-2.0-2.0); ABG HCO3 21.7 mmol/L (22.0-26.0); ABG OXYGEN SATURATION 85.4 % (94-97); ABG PCO2 (T) 45.5 mmHg (32.0-45.0); ABG PO2 (T) 53.9 mmHg (75.0-100.0); ALLEN'S TEST POSITIVE; FCOHb 0.2 % (0.0-3.9); FMetHb 0.3 % (0.0-1.5); PEEP 14 cm H2O; RESPIRATORY RATE 22 b/min; TIDAL VOLUME 500 mL; TOTAL HEMOGLOBIN 13.6 G/dl (12.0-16.0)
== END 2021-04-01 11:23 | DRG 870 ==
LOC: ER 12:52 → ED HOLD 15:30 → CICU 2S 21:52
PROVIDERS: ADMIT Surgery Surgical Critical Care; ATTEND Surgery Surgical Critical Care
PROC: XW033E5 Introduction of Remdesivir Anti-infective into Peripheral Vein, Percutaneous Approach, New Technology Group 5 (ICD-10-PCS; principal; 2021-03-13)
PROC: 5A1955Z Respiratory Ventilation, Greater than 96 Consecutive Hours (ICD-10-PCS; 2021-03-13)
PROC: 0BH17EZ Insertion of Endotracheal Airway into Trachea, Via Natural or Artificial Opening (ICD-10-PCS; 2021-03-13)
PROC: B32T1ZZ Computerized Tomography (CT Scan) of Left Pulmonary Artery using Low Osmolar Contrast (ICD-10-PCS; 2021-03-13)
PROC: B3201ZZ Computerized Tomography (CT Scan) of Thoracic Aorta using Low Osmolar Contrast (ICD-10-PCS; 2021-03-13)
PROC: B32S1ZZ Computerized Tomography (CT Scan) of Right Pulmonary Artery using Low Osmolar Contrast (ICD-10-PCS; 2021-03-13)
PROC: B4201ZZ Computerized Tomography (CT Scan) of Abdominal Aorta using Low Osmolar Contrast (ICD-10-PCS; 2021-03-13)
PROC: B4241ZZ Computerized Tomography (CT Scan) of Superior Mesenteric Artery using Low Osmolar Contrast (ICD-10-PCS; 2021-03-13)
PROC: B4281ZZ Computerized Tomography (CT Scan) of Bilateral Renal Arteries using Low Osmolar Contrast (ICD-10-PCS; 2021-03-13)
PROC: B42C1ZZ Computerized Tomography (CT Scan) of Pelvic Arteries using Low Osmolar Contrast (ICD-10-PCS; 2021-03-13)
PROC: B42H1ZZ Computerized Tomography (CT Scan) of Bilateral Lower Extremity Arteries using Low Osmolar Contrast (ICD-10-PCS; 2021-03-13)
PROC: B4211ZZ Computerized Tomography (CT Scan) of Celiac Artery using Low Osmolar Contrast (ICD-10-PCS; 2021-03-13)
PROC: 06HY33Z Insertion of Infusion Device into Lower Vein, Percutaneous Approach (ICD-10-PCS; 2021-03-13)
PROC: B54BZZA Ultrasonography of Right Lower Extremity Veins, Guidance (ICD-10-PCS; 2021-03-13)
PROC: 0W9900Z Drainage of Right Pleural Cavity with Drainage Device, Open Approach (ICD-10-PCS; 2021-03-15)
PROC: 02HV33Z Insertion of Infusion Device into Superior Vena Cava, Percutaneous Approach (ICD-10-PCS; 2021-03-22)
PROC: B548ZZA Ultrasonography of Superior Vena Cava, Guidance (ICD-10-PCS; 2021-03-22)
PROC: 30233N1 Transfusion of Nonautologous Red Blood Cells into Peripheral Vein, Percutaneous Approach (ICD-10-PCS; 2021-03-26)
PROC: BW241ZZ Computerized Tomography (CT Scan) of Chest and Abdomen using Low Osmolar Contrast (ICD-10-PCS; 2021-03-31)
DX: A41.52 Sepsis due to Pseudomonas (principal); E11.10 Type 2 diabetes mellitus with ketoacidosis without coma; U07.1 COVID-19; J12.82 Pneumonia due to coronavirus disease 2019; R65.21 Severe sepsis with septic shock; J96.01 Acute respiratory failure with hypoxia; N17.9 Acute kidney failure, unspecified; J93.83 Other pneumothorax; E87.3 Alkalosis; K92.2 Gastrointestinal hemorrhage, unspecified; E66.01 Morbid (severe) obesity due to excess calories; D50.0 Iron deficiency anemia secondary to blood loss (chronic); D72.823 Leukemoid reaction; Z68.39 Body mass index [BMI] 39.0-39.9, adult; E87.6 Hypokalemia; I10 Essential (primary) hypertension; Z66 Do not resuscitate; I46.9 Cardiac arrest, cause unspecified
CPT/HCPCS: 36415; 36430; 36573; 36600; 70450; 71045; 71260; 71275; 74174; 80048; 80053; 80076; 80202; 81001; 82272; 82803; 82948; 83010; 83036; 83605; 83615; 83735; 84100; 84134; 84145; 84443; 84478; 84484; 85007; 85018; 85025; 85027; 85379; 85384; 85610; 85730; 86140; 86885; 86900; 86901; 86920; 87040; 87070; 87077; 87081; 87186; 87635; 93005; 94002; 94003; 94760; 94799; 99285; C9113; C9803; G0378; J0692; J0713; J1100; J1650; J1815; J1940; J2248; J2310; J2704; J2920; J2930; J3010; J3370; J3475; J3480; J7030; J7050; J7060; P9016; Q9967